=== PATIENT | male | born 1955 | race Caucasian/White ===

== ENCOUNTER → 2019-07-29 | Outpatient (CLI) | payer BC, SELFPAY ==
--- NOTE | 2019-07-29 08:41 | CDU_ITS ---
Reason For Study: TIA Rt. Velocities/BP Lt. Velocities/BP Prox CCA 100.8/17.3 cm/sec. Prox CCA 164.9/18.8 cm/sec. Mid CCA 68.2/14.7 cm/sec. Mid CCA 117.4/18.8 cm/sec. Dist CCA 93.0/17.3 cm/sec. Dist CCA 102.3/21.2 cm/sec. Prox ICA 94.9/15.1 cm/sec. Prox ICA 76.5/17.6 cm/sec. Mid ICA 70.4/20.0 cm/sec. Mid ICA 86.3/17.6 cm/sec. Dist ICA 75.3/18.8 cm/sec. Dist ICA 71.6/13.9 cm/sec. Rt. ICA/CCA = 1.4. Lt. ICA/CCA = .7. Prox ECA 135.7/9.7 cm/sec. Prox ECA 187.2/16.0 cm/sec. Rt. Vert. 61.8/15.1 cm/sec. Lt. Vert. 24.9 cm/sec. Right Extracranial There is homogeneous, smooth atherosclerotic plaque noted in the right common carotid artery. There is heterogeneous, irregular atherosclerotic plaque noted in the right internal carotid artery. There is homogeneous, smooth atherosclerotic plaque noted in the right external carotid artery. Antegrade flow is noted in the right vertebral artery. Left Extracranial There is homogeneous, smooth atherosclerotic plaque noted in the left common carotid artery. There is heterogeneous, irregular atherosclerotic plaque noted in the left internal carotid artery. There is homogeneous, smooth atherosclerotic plaque noted in the left external carotid artery. Antegrade flow is noted in the left vertebral artery. Procedure Carotid Duplex [id number]. The exam was diagnostic. Exam performed in department. Interpretation Summary Minimal irregular plague proximal right internal carotid with <50% stenosis <50% stenosis right external carotid Calcific plague with shadowing distal left common carotid artery/proximal internal carotid <50% stenosis left internal carotid <50% stenosis left external carotid Patent, antegrade vertebrals bilaterally Ordering Physician: Gaurav Jennings Performed By: Deonte Oviedo RVT
== END | disposition home or self-care (01) ==
PROVIDERS: PCP Internal Medicine; Referring Provider Internal Medicine; Visit Provider Internal Medicine
DX: I10 Essential (primary) hypertension (principal); Z86.73 Personal history of transient ischemic attack (TIA), and cerebral infarction without residual deficits
CPT/HCPCS: 93880

== ENCOUNTER 2020-05-09 14:29 | Inpatient (IN) | payer MEDICARE, OTHER, SELFPAY ==
[2020-05-09 14:41] VITALS: BP 124/78; PULSE 70; RESP 16; TEMP 36.7; O2SAT 96; BMI 25.9
[2020-05-09 15:39] VITALS: PULSE 84
[2020-05-09] MEDS: Aspirin E.C. 81 MG Tablet PO (17:13)
[2020-05-09] MEDS: Carvedilol 3.125 MG TABLET PO (17:13)
[2020-05-09] MEDS: Docusate Sodium 100 MG Capsule PO (17:13)
[2020-05-09] MEDS: Magnesium Citrate 300 ML PO (17:14)
[2020-05-09] MEDS: 0.9% Saline Lock 10 ML Syringe IV (17:58)
[2020-05-09] MEDS: Menthol/Lanolin/Calamine/Znox 113 GM Tube 1 APPLIC TOPICAL (17:59)
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
[2020-05-09] MEDS: traZODone 50 MG Tablet PO (21:39)
[2020-05-09] MEDS: Atorvastatin Calcium 80 MG Tablet PO (21:39)
[2020-05-09] MEDS: oxyCODONE 5 MG Tablet PO (21:44)
[2020-05-10 05:34] LABS: Absolute Lymphocyte Count 1.05 X10^3/uL (0.83-4.51); Absolute Neutrophil Count 6.7 X10^3/uL (2.0-7.7); Basophil# 0.05 X10^3/uL; Basophil% 0.6 % (0-1); Eosinophil# 0.12 X10^3/uL; Eosinophils% 1.4 % (0-5); Hematocrit 27.4 % (40-54); Hemoglobin 8.9 g/dL (13.0-16.5); Lymphocyte # 1.05 X10^3/ul (4.0); Lymphocyte % 12.3 % (19-41); Mean Corp Hgb Conc 32.5 g/dL (32-36); Mean Corpuscular Hgb 29.8 pg (27.0-32.0); Mean Corpuscular Volume 91.6 fL (80-94); Mean Platelet Vol. 8.3 fl (6.2-12.0); Monocyte# 0.66 X10^3/uL; Monocyte% 7.7 % (0-10); NRBC Flagged by Analyzer 0 % (0-5); Neutrophil # 6.65 X10^3/uL (2.7-7.7); Neutrophil % 77.6 % (47-70); Platelet Count 552 K/mm3 (150-450); RBC Distribution Width CV 14.8 % (11.6-14.6); RBC Distribution Width SD 50.1 fl (35.1-43.9); Red Blood Count 2.99 M/mm3 (4.6-6.2); White Blood Count 8.6 K/mm3 (4.4-11.0)
[2020-05-10] MEDS: Ascorbic Acid 500 MG Tablet 1000 MG PO (05:48)
[2020-05-10] MEDS: Pantoprazole Sodium 20 MG Tablet PO (05:48)
[2020-05-10] MEDS: Losartan Potassium 100 MG Tablet PO (05:49)
[2020-05-10] MEDS: Polyethylene Glycol 3350 17 GM PACKET PO (05:49)
[2020-05-10] MEDS: Menthol/Lanolin/Calamine/Znox 113 GM Tube 1 APPLIC TOPICAL ×2 (05:49→18:20)
[2020-05-10] MEDS: hydroCHLOROthiazide 25 MG Tablet PO (05:49)
[2020-05-10] MEDS: Docusate Sodium 100 MG Capsule PO ×2 (05:49→17:50)
[2020-05-10] MEDS: Nystatin Powder 15gm Bottle 1 APPLIC TOPICAL ×2 (05:49→18:26)
[2020-05-10] MEDS: Meloxicam 15 MG Tablet PO (05:49)
[2020-05-10 05:56] LABS: Anion Gap 4 (5-15); BUN 10 mg/dL (7-18); BUN/Creat Ratio 19.3 RATIO (10-20); Calcium,Total 8.3 mg/dL (8.5-10.1); Chloride 100 mmol/L (98-107); Creatinine, Serum 0.52 mg/dL (0.70-1.30); EST Glomerular Filtration Rate 170 mL/min (>60); Est Glom Filt Rate - Afr Amer 206 mL/min (>60); Estimated Creatinine Clearance 169.27 ml/min; Glucose 109 mg/dL (74-106); Potassium 4.2 mmol/L (3.5-5.1); Sodium Level 133 mmol/L (136-145)
[2020-05-10 05:57] VITALS: BP 111/69; PULSE 68; RESP 18; TEMP 36.2; O2SAT 97
--- NOTE | 2020-05-10 07:56 | RAD_ITS ---
STUDY: X-RAY - ABDOMEN/PELVIS REASON FOR EXAM: Male, 64 years old. Constipation TECHNIQUE: Single AP view of the abdomen / pelvis. COMPARISON: None. FINDINGS: Mild gaseous distention of the colon. Large amount of fecal material is seen in the rectum suggestive of possible fecaloma. Several rounded densities are seen in the region of the cecum most likely representing ingested tablets. The visualized liver, spleen and kidneys are grossly normal in size and morphology. Normal soft tissue structures. There are diffuse degenerative changes of the visualized lumbar spine. RAD/Abdomen Single View IMPRESSION: Large amount of fecal material is seen in the rectum with some mild dilatation of the colon. Electronically Signed: Luis Carlos Crocker MD at 11:18 EST , Service support ,
[2020-05-10] MEDS: Carvedilol 3.125 MG TABLET PO ×2 (08:38→17:51)
[2020-05-10] MEDS: Aspirin E.C. 81 MG Tablet PO ×2 (08:38→17:50)
[2020-05-10] MEDS: Iron Polysaccharide Complex 150 MG CAPSULE PO (09:50)
[2020-05-10] MEDS: Tuberculin,Purif.prot.deriv. 50 TU/ML Vial 5 ML ID (09:50)
--- NOTE | 2020-05-10 10:22 | CASEMGMT ---
Social Work SW spoke w/pt regarding code status, confirmed pt in agreement with DNRCC. MOLST form reviewed, communication to doctor, form placed in chart. STANTON Oliver
[2020-05-10] MEDS: 0.9% Saline Lock 10 ML Syringe IV ×3 (12:28→17:49)
[2020-05-10 13:52] VITALS: BP 94/59; PULSE 76; RESP 17; TEMP 36.4; O2SAT 95
--- NOTE | 2020-05-10 14:01 | PCM.PN.RX ---
<Tatiana Estrada - Last Filed: 05/10/20 14:01> Progress Note - Pharmacy Subjective: TCU Admission Objective: Allergies povidone-iodine [From Betadine] Adverse Reaction (Verified 05/09/20 15:35) Rash soap [From Betadine] Adverse Reaction (Verified 05/09/20 15:35) Rash sulfamethoxazole [From Bactrim] Adverse Reaction (Verified 05/09/20 15:35) Rash trimethoprim [From Bactrim] Adverse Reaction (Verified 05/09/20 15:35) Rash Current Medications Generic Name Dose Route Start Last Admin Trade Name Freq PRN Reason Stop Dose Admin Acetaminophen 1,000 mg 05/09/20 20:24 Acetaminophen 500 Mg Tablet PO Q6H PRN PRN Pain Score 1-3 Ascorbic Acid 1,000 mg 05/10/20 06:00 05/10/20 05:48 Ascorbic Acid 500 Mg Tablet PO 1,000 mg DAILY ALAN Administration Aspirin 81 mg 05/09/20 17:00 05/10/20 08:38 Aspirin E.C. 81 Mg Tablet PO 81 mg BIDCM ALAN Administration Atorvastatin Calcium 80 mg 05/09/20 22:00 05/09/20 21:39 Atorvastatin Calcium 80 Mg Tablet PO 80 mg QHS ALAN Administration Bisacodyl 5 mg 05/09/20 15:06 Bisacodyl 5 Mg Tablet PO BID PRN PRN Constipation Calamine/Phenol 1 applic 05/09/20 18:00 05/10/20 05:49 Menthol/Lanolin/Calamine/Znox 113 Gm Tube TOPICAL 1 applicatio BID ALAN Administration Protocol Carvedilol 3.125 mg 05/09/20 17:00 05/10/20 08:38 Carvedilol 3.125 Mg Tablet PO 3.125 mg BIDCM ALAN Administration Docusate Sodium 100 mg 05/09/20 18:00 05/10/20 05:49 Docusate Sodium 100 Mg Capsule PO 100 mg BID ALAN Administration Heparin Sodium (Beef Lung) 50 units 05/09/20 16:04 Heparin Pf Lock 10 Units/Ml 50 Units/5 Ml Syringe IV UD PRN PICC Line Heparin Flush Hydrochlorothiazide 25 mg 05/10/20 06:00 05/10/20 05:49 Hydrochlorothiazide 25 Mg Tablet PO 25 mg DAILY ALAN Administration Ampicillin Sodium 2 gm/ Sodium 100 mls @ 200 mls/hr 02/09/21 18:00 05/10/20 13:30 Chloride IV 06/13/20 23:59 Infused Q6 ALAN Infusion Sodium Chloride 250 mls @ 15 mls/hr 05/09/20 17:20 05/10/20 06:28 IV 15 mls/hr .[id number] PRN Infusion Additional IVPB Infusion Losartan Potassium 100 mg 05/10/20 06:00 05/10/20 05:49 Losartan Potassium 100 Mg Tablet PO 100 mg DAILY ALAN Administration Meloxicam 15 mg 05/10/20 06:00 05/10/20 05:49 Meloxicam 15 Mg Tablet PO 15 mg DAILY ALAN Administration Nystatin 1 applic 05/09/20 18:00 05/10/20 05:49 Nystatin Powder 15gm Bottle TOPICAL 1 applicatio BID ALAN Administration Protocol Ondansetron HCl 4 mg 05/09/20 18:01 Ondansetron Odt 4 Mg Tablet PO Q8H PRN PRN NAUSEA/VOMITING Oxycodone HCl 5 mg 05/09/20 20:25 05/09/20 21:44 Oxycodone 5 Mg Tablet PO 5 mg Q4H PRN PRN Administration Pain Score 4-10 Pantoprazole Sodium 20 mg 05/10/20 06:00 05/10/20 05:48 Pantoprazole Sodium 20 Mg Tablet PO 20 mg DAILY ALAN Administration Polyethylene Glycol 17 gm 05/10/20 06:00 05/10/20 05:49 Polyethylene Glycol 3350 17 Gm Packet PO 17 gm DAILY ALAN Administration Polysaccharide Iron Complex 150 mg 05/10/20 08:00 05/10/20 09:50 Iron Polysaccharide Complex 150 Mg Capsule PO 150 mg DAILYCM ALAN Administration Sodium Chloride 10 - 40 ml 05/09/20 16:04 05/10/20 13:33 0.9% Saline Lock 10 Ml Syringe IV 10 ml UD PRN Administration Open End PICC Flush Sodium Chloride 10 - 40 ml 05/09/20 16:04 0.9 % Nacl (Sterile) Posiflush 10 Ml IV UD PRN Port access or dressing change Trazodone HCl 50 mg 05/09/20 22:00 05/09/20 21:39 Trazodone 50 Mg Tablet PO 50 mg QHS ALAN Administration Tuberculin PPD 5 tu 05/17/20 10:00 Tuberculin,Purif.Prot.Deriv. 50 Tu/Ml Vial ID 05/17/20 10:01 X1 ONE Problem List Debility (Acute) Infection of prosthetic left knee joint (Acute) Stroke (Chronic) Hypertension (Chronic) Hyperlipidemia (Chronic) Transient ischemic attack (Chronic) Vital Signs Temp Pulse Resp BP Pulse Ox 97.5 F L 76 17 94/59 L 95 05/10/20 13:52 05/10/20 13:52 05/10/20 13:52 05/10/20 13:52 05/10/20 13:52 Oxygen Delivery Method Room Air Weight: 93.894 kg Body Mass Index (BMI) 25.9 Sodium 133 mmol/L (136-145) L 05/10/20 05:15 Potassium 4.2 mmol/L (3.5-5.1) 05/10/20 05:15 Chloride 100 mmol/L (98-107) 05/10/20 05:15 Carbon Dioxide 29.0 mmol/L (21.0-32.0) 05/10/20 05:15 Anion Gap 4 (5-15) L 05/10/20 05:15 BUN 10 mg/dL (7-18) 05/10/20 05:15 Creatinine 0.52 mg/dL (0.70-1.30) L 05/10/20 05:15 Est GFR (MDRD) Af Amer 206 mL/min (>60) 05/10/20 05:15 Est GFR (MDRD) Non-Af 170 mL/min (>60) 05/10/20 05:15 BUN/Creatinine Ratio 19.3 RATIO (10-20) 05/10/20 05:15 Glucose 109 mg/dL (74-106) H 05/10/20 05:15 Assessment/Plan: 1. Pain: acetaminophen 1000mg PO Q6H PRN pain 1-3/10 and oxycodone 5mg PO Q4H PRN pain 4-10/10. Please continue to monitor for increased pain, PRN usage, constipation, and respiratory depression. 2. Left prosthetic knee infection: ampicillin 2gm IV Q6H thru 06/13/20. Please continue to monitor renal function, S/S of infection and diarrhea. 3. DVT prophylaxis/stroke: aspirin 81mg PO BIDCM. Please continue to monitor for S/S of bleeding/DVT, hemoglobin (last 8.9g/dL), and platelets (last 552,000). 4. Hypertension: carvedilol 3.125mg PO BIDCM, losartan 100mg PO daily and hydrochlorothiazide 25mg PO daily. Please continue to monitor HR (last 76), BP (last 111/69), renal function, potassium (last 4.2mmol/L). *5. Hyperlipidemia: atorvastatin 80mg PO QHS. Please consider ordering a lipid panel. Patient does not have a lipid panel in the chart. Thanks. Please continue to monitor for muscle pain. 6. Osteoarthritis: meloxicam 15mg PO daily. Please continue to monitor for pain and bleeding. 7. Iron deficiency (hemoglobin 8.9g/dL): Ferrex 150mg PO DAILYCM. Please continue to monitor hemoglobin and for dark stools. 8. GERD: pantoprazole 20mg PO daily. Please continue to monitor for S/S of GERD and diarrhea. 9. Nausea: ondansetron 4mg PO Q8H PRN nausea/vomiting. Please continue to monitor for nausea, vomiting, and PRN usage. 10. Vitamin C deficiency: ascorbic acid 1000mg PO DAILYCM. Please continue to monitor. Psychotropic Medications: *1. Insomnia: trazodone 50mg PO QHS. Please consider GDR by 10/2020 if clinically appropriate. Thanks. Unnecessary Medications: None Bowel Regimen: docusate 100mg PO BID, Miralax 17gm PO daily, bisacodyl 5mg PO BID PRN constipation. Please continue to monitor for constipation and PRN usage. Date of Note:: 05/10/20 - Provider Comments Provider responsibility: Provider responsible to enter orders to implement recommendations <Neal Cross Chi - Last Filed: 05/10/20 16:05> Progress Note - Pharmacy Subjective: [] Objective: Allergies povidone-iodine [From Betadine] Adverse Reaction (Verified 05/09/20 15:35) Rash soap [From Betadine] Adverse Reaction (Verified 05/09/20 15:35) Rash sulfamethoxazole [From Bactrim] Adverse Reaction (Verified 05/09/20 15:35) Rash trimethoprim [From Bactrim] Adverse Reaction (Verified 05/09/20 15:35) Rash Current Medications Generic Name Dose Route Start Last Admin Trade Name Freq PRN Reason Stop Dose Admin Acetaminophen 1,000 mg 05/09/20 20:24 Acetaminophen 500 Mg Tablet PO Q6H PRN PRN Pain Score 1-3 Ascorbic Acid 1,000 mg 05/10/20 06:00 05/10/20 05:48 Ascorbic Acid 500 Mg Tablet PO 1,000 mg DAILY ALAN Administration Aspirin 81 mg 05/09/20 17:00 05/10/20 08:38 Aspirin E.C. 81 Mg Tablet PO 81 mg BIDCM ALAN Administration Atorvastatin Calcium 80 mg 05/09/20 22:00 05/09/20 21:39 Atorvastatin Calcium 80 Mg Tablet PO 80 mg QHS ALAN Administration Bisacodyl 5 mg 05/09/20 15:06 Bisacodyl 5 Mg Tablet PO BID PRN PRN Constipation Calamine/Phenol 1 applic 05/09/20 18:00 05/10/20 05:49 Menthol/Lanolin/Calamine/Znox 113 Gm Tube TOPICAL 1 applicatio BID ALAN Administration Protocol Carvedilol 3.125 mg 05/09/20 17:00 05/10/20 08:38 Carvedilol 3.125 Mg Tablet PO 3.125 mg BIDCM ALAN Administration Docusate Sodium 100 mg 05/09/20 18:00 05/10/20 05:49 Docusate Sodium 100 Mg Capsule PO 100 mg BID ALAN Administration Heparin Sodium (Beef Lung) 50 units 05/09/20 16:04 Heparin Pf Lock 10 Units/Ml 50 Units/5 Ml Syringe IV UD PRN PICC Line Heparin Flush Hydrochlorothiazide 25 mg 05/10/20 06:00 05/10/20 05:49 Hydrochlorothiazide 25 Mg Tablet PO 25 mg DAILY ALAN Administration Ampicillin Sodium 2 gm/ Sodium 100 mls @ 200 mls/hr 05/09/20 18:00 05/10/20 13:30 Chloride IV 06/13/20 23:59 Infused Q6 ALAN Infusion Sodium Chloride 250 mls @ 15 mls/hr 05/09/20 17:20 05/10/20 06:28 IV 15 mls/hr .[id number] PRN Infusion Additional IVPB Infusion Lactulose 200 gm 05/10/20 16:01 Lactulose 20 Gm/30 Ml Udc RC 05/10/20 16:02 X1 ONE Losartan Potassium 100 mg 05/10/20 06:00 05/10/20 05:49 Losartan Potassium 100 Mg Tablet PO 100 mg DAILY ALAN Administration Meloxicam 15 mg 05/10/20 06:00 05/10/20 05:49 Meloxicam 15 Mg Tablet PO 15 mg DAILY ALAN Administration Nystatin 1 applic 05/09/20 18:00 05/10/20 05:49 Nystatin Powder 15gm Bottle TOPICAL 1 applicatio BID ALAN Administration Protocol Ondansetron HCl 4 mg 05/09/20 18:01 Ondansetron Odt 4 Mg Tablet PO Q8H PRN PRN NAUSEA/VOMITING Oxycodone HCl 5 mg 05/09/20 20:25 05/09/20 21:44 Oxycodone 5 Mg Tablet PO 5 mg Q4H PRN PRN Administration Pain Score 4-10 Pantoprazole Sodium 20 mg 05/10/20 06:00 05/10/20 05:48 Pantoprazole Sodium 20 Mg Tablet PO 20 mg DAILY ALAN Administration Polyethylene Glycol 17 gm 05/10/20 06:00 05/10/20 05:49 Polyethylene Glycol 3350 17 Gm Packet PO 17 gm DAILY ALAN Administration Polysaccharide Iron Complex 150 mg 05/10/20 08:00 05/10/20 09:50 Iron Polysaccharide Complex 150 Mg Capsule PO 150 mg DAILYCM ALAN Administration Sodium Chloride 10 - 40 ml 05/09/20 16:04 05/10/20 13:33 0.9% Saline Lock 10 Ml Syringe IV 10 ml UD PRN Administration Open End PICC Flush Sodium Chloride 10 - 40 ml 05/09/20 16:04 0.9 % Nacl (Sterile) Posiflush 10 Ml IV UD PRN Port access or dressing change Trazodone HCl 50 mg 05/09/20 22:00 05/09/20 21:39 Trazodone 50 Mg Tablet PO 50 mg QHS [facility] Administration Tuberculin PPD 5 tu 05/17/20 10:00 Tuberculin,Purif.Prot.Deriv. 50 Tu/Ml Vial ID 05/17/20 10:01 X1 ONE Problem List Debility (Acute) Infection of prosthetic left knee joint (Acute) Stroke (Chronic) Hypertension (Chronic) Hyperlipidemia (Chronic) Transient ischemic attack (Chronic) Vital Signs Temp Pulse Resp BP Pulse Ox 97.5 F L 76 17 94/59 L 95 05/10/20 13:52 05/10/20 13:52 05/10/20 13:52 05/10/20 13:52 05/10/20 13:52 Oxygen Delivery Method Room Air Weight: 93.894 kg Body Mass Index (BMI) 25.9 Sodium 133 mmol/L (136-145) L 05/10/20 05:15 Potassium 4.2 mmol/L (3.5-5.1) 05/10/20 05:15 Chloride 100 mmol/L (98-107) 05/10/20 05:15 Carbon Dioxide 29.0 mmol/L (21.0-32.0) 05/10/20 05:15 Anion Gap 4 (5-15) L 05/10/20 05:15 BUN 10 mg/dL (7-18) 05/10/20 05:15 Creatinine 0.52 mg/dL (0.70-1.30) L 05/10/20 05:15 Est GFR (MDRD) Af Amer 206 mL/min (>60) 05/10/20 05:15 Est GFR (MDRD) Non-Af 170 mL/min (>60) 05/10/20 05:15 BUN/Creatinine Ratio 19.3 RATIO (10-20) 05/10/20 05:15 Glucose 109 mg/dL (74-106) H 05/10/20 05:15 Assessment/Plan: Psychotropic Medications: Unnecessary Medications: Bowel Regimen: - Provider Comments Provider responsibility: Provider responsible to enter orders to implement recommendations Provider Comments to Recommendations by Pharmacy: Agree
--- NOTE | 2020-05-10 14:37 | NURSING ---
Patient calls requesting to return to bed. Assist back to bed per this nurse and ENVIRONMENT[employer] HE[employer] SAF[employer] ENGINEER, Kimberly, using FWW, immobilizer in place, and maintained NWB status to LLE. Positioned in bed for comfort. Call light w/ in reach.
[2020-05-10] MEDS: Lactulose 20 GM/30 ML UDC 200 GM RC (18:20)
[2020-05-10] MEDS: traZODone 50 MG Tablet PO (21:42)
[2020-05-10] MEDS: Atorvastatin Calcium 80 MG Tablet PO (21:42)
[2020-05-10] MEDS: oxyCODONE 5 MG Tablet PO (21:46)
[2020-05-10] MEDS: Acetaminophen 500 MG Tablet 1000 MG PO (21:46)
[2020-05-11] MEDS: Nystatin Powder 15gm Bottle 1 APPLIC TOPICAL ×2 (06:24→17:19)
[2020-05-11] MEDS: Menthol/Lanolin/Calamine/Znox 113 GM Tube 1 APPLIC TOPICAL ×2 (06:24→17:20)
[2020-05-11] MEDS: Ascorbic Acid 500 MG Tablet 1000 MG PO (06:25)
[2020-05-11] MEDS: Meloxicam 15 MG Tablet PO (06:26)
[2020-05-11] MEDS: Losartan Potassium 100 MG Tablet PO (06:26)
[2020-05-11] MEDS: hydroCHLOROthiazide 25 MG Tablet PO (06:26)
[2020-05-11] MEDS: Docusate Sodium 100 MG Capsule PO ×2 (06:26→17:19)
[2020-05-11] MEDS: Pantoprazole Sodium 20 MG Tablet PO (06:26)
[2020-05-11 06:31] VITALS: BP 111/70; PULSE 68; RESP 16; TEMP 36.4; O2SAT 96
[2020-05-11] MEDS: 0.9% Saline Lock 10 ML Syringe IV ×3 (08:27→17:19)
[2020-05-11] MEDS: Iron Polysaccharide Complex 150 MG CAPSULE PO (08:29)
[2020-05-11] MEDS: Carvedilol 3.125 MG TABLET PO ×2 (08:29→17:19)
[2020-05-11] MEDS: Aspirin E.C. 81 MG Tablet PO ×2 (08:29→17:19)
[2020-05-11 08:31] VITALS: BP 104/67; PULSE 72
[2020-05-11 13:30] VITALS: PULSE 78; O2SAT 98
[2020-05-11 13:31] VITALS: BP 94/60; PULSE 68; RESP 16; TEMP 36.7; O2SAT 97
--- NOTE | 2020-05-11 14:44 | NURSING ---
wound photo: skin graft right knee
[2020-05-11 17:27] VITALS: BP 119/75; PULSE 64; TEMP 36.9
[2020-05-11] MEDS: Acetaminophen 500 MG Tablet 1000 MG PO (21:08)
[2020-05-11] MEDS: oxyCODONE 5 MG Tablet PO (21:09)
[2020-05-11] MEDS: Atorvastatin Calcium 80 MG Tablet PO (21:10)
[2020-05-11] MEDS: traZODone 50 MG Tablet PO (21:10)
[2020-05-12] MEDS: Meloxicam 15 MG Tablet PO (05:16)
[2020-05-12] MEDS: Pantoprazole Sodium 20 MG Tablet PO (05:16)
[2020-05-12] MEDS: hydroCHLOROthiazide 25 MG Tablet PO (05:16)
[2020-05-12] MEDS: Ascorbic Acid 500 MG Tablet 1000 MG PO (05:16)
[2020-05-12] MEDS: Losartan Potassium 100 MG Tablet PO (05:16)
[2020-05-12] MEDS: Menthol/Lanolin/Calamine/Znox 113 GM Tube 1 APPLIC TOPICAL ×2 (05:17→17:33)
[2020-05-12] MEDS: Nystatin Powder 15gm Bottle 1 APPLIC TOPICAL ×2 (05:17→17:34)
[2020-05-12 05:49] VITALS: BP 112/62; PULSE 60; RESP 16; TEMP 36.7; O2SAT 99
[2020-05-12 05:54] LABS: Hematocrit 26.4 % (40-54); Hemoglobin 8.4 g/dL (13.0-16.5)
[2020-05-12] MEDS: Iron Polysaccharide Complex 150 MG CAPSULE PO (08:34)
[2020-05-12] MEDS: Carvedilol 3.125 MG TABLET PO ×2 (08:34→17:32)
[2020-05-12] MEDS: Aspirin E.C. 81 MG Tablet PO ×2 (08:34→17:32)
[2020-05-12 11:10] VITALS: PULSE 71; RESP 16; O2SAT 97
[2020-05-12] MEDS: 0.9% Saline Lock 10 ML Syringe IV ×3 (12:02→23:42)
--- NOTE | 2020-05-12 13:00 | PCA ---
Addendum entered by Kimberly Sexton 05/12/20 16:43: Called [facility] to get a cost for a W/c transport to [facility] at the request for the Caren. Let her know the estimate is $1000 per Anai at [facility]. Caren updated. At this time she is still planning on taking pt to appt. Original Note: Patient called for a staff member to come to room. He had a voicemail from a nurse at [facility]. Stating that Dr. Acevedo wanted to see him on May 18 at 9am. Desk A60 at the [facility]. [phone]. Talked with therapy, they fill that family would be ok to transport versus us setting up transportation. Patient seems anxious about all the above. I have a message out to office to confirm the appt. waiting for a call back. told them to ask for me or charge nurse when they call us back. i Called and spoke with patients Caren. She is ok with driving pt to appt since therapy says its ok. Let them both know that if they change there minds and want us to set up transport to let us know, no later than Friday. Also let them no there is a cost for transport. RN updated
[2020-05-12 14:17] VITALS: BP 99/66; PULSE 76; RESP 17; TEMP 36.2; O2SAT 96
[2020-05-12] MEDS: Docusate Sodium 100 MG Capsule PO (17:32)
[2020-05-12 17:42] VITALS: BP 129/72; PULSE 66
[2020-05-12] MEDS: oxyCODONE 5 MG Tablet PO (21:32)
[2020-05-12] MEDS: Atorvastatin Calcium 80 MG Tablet PO (21:33)
--- NOTE | 2020-05-12 21:35 | NURSING ---
Pt refusing to take Trazodone at this time w/ remainder of hs meds and pain medication. Would like to take later this evening.
[2020-05-12] MEDS: traZODone 50 MG Tablet PO (23:41)
[2020-05-13] MEDS: 0.9% Saline Lock 10 ML Syringe IV ×4 (06:53→17:26)
[2020-05-13 06:56] VITALS: BP 126/73; PULSE 66; RESP 16; TEMP 36.9; O2SAT 94
[2020-05-13] MEDS: Pantoprazole Sodium 20 MG Tablet PO (07:07)
[2020-05-13] MEDS: Docusate Sodium 100 MG Capsule PO ×2 (07:08→17:26)
[2020-05-13] MEDS: hydroCHLOROthiazide 25 MG Tablet PO (07:08)
[2020-05-13] MEDS: Losartan Potassium 100 MG Tablet PO (07:08)
[2020-05-13] MEDS: Ascorbic Acid 500 MG Tablet 1000 MG PO (07:09)
[2020-05-13] MEDS: Polyethylene Glycol 3350 17 GM PACKET PO (07:10)
[2020-05-13] MEDS: Nystatin Powder 15gm Bottle 1 APPLIC TOPICAL ×2 (07:11→17:27)
[2020-05-13] MEDS: Menthol/Lanolin/Calamine/Znox 113 GM Tube 1 APPLIC TOPICAL ×2 (07:12→17:26)
[2020-05-13] MEDS: Aspirin E.C. 81 MG Tablet PO ×2 (09:02→17:26)
[2020-05-13] MEDS: Meloxicam 15 MG Tablet PO (09:02)
[2020-05-13] MEDS: Carvedilol 3.125 MG TABLET PO ×2 (09:02→17:26)
[2020-05-13] MEDS: Iron Polysaccharide Complex 150 MG CAPSULE PO (09:02)
[2020-05-13 09:06] VITALS: BP 109/64; PULSE 71
[2020-05-13 14:00] VITALS: BP 111/69; PULSE 73; RESP 18; TEMP 37; O2SAT 98
[2020-05-13] MEDS: traZODone 50 MG Tablet PO (20:05)
[2020-05-13] MEDS: Atorvastatin Calcium 80 MG Tablet PO (20:05)
[2020-05-13] MEDS: Acetaminophen 500 MG Tablet 1000 MG PO (22:42)
[2020-05-14 05:00] VITALS: BP 128/83; PULSE 70; RESP 18; TEMP 36.6; O2SAT 95
[2020-05-14 06:44] LABS: Hematocrit 28.3 % (40-54); Hemoglobin 8.9 g/dL (13.0-16.5)
[2020-05-14] MEDS: Menthol/Lanolin/Calamine/Znox 113 GM Tube 1 APPLIC TOPICAL ×2 (07:03→18:30)
[2020-05-14] MEDS: Pantoprazole Sodium 20 MG Tablet PO (07:04)
[2020-05-14] MEDS: Nystatin Powder 15gm Bottle 1 APPLIC TOPICAL ×2 (07:04→18:31)
[2020-05-14] MEDS: Ascorbic Acid 500 MG Tablet 1000 MG PO (07:04)
[2020-05-14] MEDS: Losartan Potassium 100 MG Tablet PO (07:04)
[2020-05-14] MEDS: Docusate Sodium 100 MG Capsule PO ×2 (07:04→18:30)
[2020-05-14] MEDS: hydroCHLOROthiazide 25 MG Tablet PO (07:04)
[2020-05-14] MEDS: Polyethylene Glycol 3350 17 GM PACKET PO (07:13)
[2020-05-14 07:57] VITALS: BP 145/84; PULSE 72
[2020-05-14] MEDS: Meloxicam 15 MG Tablet PO (07:58)
[2020-05-14] MEDS: Iron Polysaccharide Complex 150 MG CAPSULE PO (07:58)
[2020-05-14] MEDS: Carvedilol 3.125 MG TABLET PO ×2 (07:58→18:30)
[2020-05-14] MEDS: Aspirin E.C. 81 MG Tablet PO ×2 (07:58→18:30)
[2020-05-14] MEDS: 0.9% Saline Lock 10 ML Syringe IV ×2 (11:25→18:38)
[2020-05-14 14:08] VITALS: PULSE 66; RESP 16; O2SAT 96
[2020-05-14 14:59] VITALS: BP 119/70; PULSE 67; RESP 16; TEMP 36.5; O2SAT 96
[2020-05-14] MEDS: traZODone 50 MG Tablet PO (21:40)
[2020-05-14] MEDS: oxyCODONE 5 MG Tablet PO (21:40)
[2020-05-14] MEDS: Atorvastatin Calcium 80 MG Tablet PO (21:40)
[2020-05-15] MEDS: 0.9% Saline Lock 10 ML Syringe IV ×6 (00:19→23:28)
[2020-05-15 06:38] VITALS: BP 130/83; PULSE 74; RESP 16; TEMP 36.2; O2SAT 95
[2020-05-15] MEDS: Losartan Potassium 100 MG Tablet PO (06:41)
[2020-05-15] MEDS: Docusate Sodium 100 MG Capsule PO ×2 (06:41→17:02)
[2020-05-15] MEDS: Pantoprazole Sodium 20 MG Tablet PO (06:41)
[2020-05-15] MEDS: Ascorbic Acid 500 MG Tablet 1000 MG PO (06:41)
[2020-05-15] MEDS: hydroCHLOROthiazide 25 MG Tablet PO (06:41)
[2020-05-15] MEDS: Menthol/Lanolin/Calamine/Znox 113 GM Tube 1 APPLIC TOPICAL ×2 (06:42→17:03)
[2020-05-15] MEDS: Polyethylene Glycol 3350 17 GM PACKET PO (06:49)
[2020-05-15] MEDS: Nystatin Powder 15gm Bottle 1 APPLIC TOPICAL ×2 (06:50→17:03)
[2020-05-15] MEDS: Aspirin E.C. 81 MG Tablet PO ×2 (08:39→17:02)
[2020-05-15] MEDS: Iron Polysaccharide Complex 150 MG CAPSULE PO (08:39)
[2020-05-15] MEDS: Carvedilol 3.125 MG TABLET PO ×2 (08:39→17:02)
[2020-05-15] MEDS: Meloxicam 15 MG Tablet PO (08:39)
--- NOTE | 2020-05-15 11:21 | NURSING ---
Pt refused Prevnar 13 vaccine.
[2020-05-15 14:09] VITALS: BP 108/66; PULSE 80; RESP 18; TEMP 35.9; O2SAT 96
--- NOTE | 2020-05-15 16:16 | NURSING ---
Pt has not had a Bowel Movement since 05/10 pt refused Dulcolax.
[2020-05-15] MEDS: Magnesium Citrate 300 ML PO (16:58)
[2020-05-15] MEDS: oxyCODONE 5 MG Tablet PO (20:10)
[2020-05-15] MEDS: Atorvastatin Calcium 80 MG Tablet PO (20:11)
[2020-05-15] MEDS: traZODone 50 MG Tablet PO (22:05)
[2020-05-16 06:13] VITALS: BP 129/79; PULSE 79; RESP 16; TEMP 36.7; O2SAT 95
[2020-05-16] MEDS: hydroCHLOROthiazide 25 MG Tablet PO (06:19)
[2020-05-16] MEDS: Losartan Potassium 100 MG Tablet PO (06:19)
[2020-05-16] MEDS: Ascorbic Acid 500 MG Tablet 1000 MG PO (06:19)
[2020-05-16] MEDS: Docusate Sodium 100 MG Capsule PO (06:19)
[2020-05-16] MEDS: Pantoprazole Sodium 20 MG Tablet PO (06:19)
[2020-05-16] MEDS: Polyethylene Glycol 3350 17 GM PACKET PO ×2 (06:19→18:09)
[2020-05-16] MEDS: Nystatin Powder 15gm Bottle 1 APPLIC TOPICAL ×2 (06:20→18:09)
[2020-05-16] MEDS: Menthol/Lanolin/Calamine/Znox 113 GM Tube 1 APPLIC TOPICAL ×2 (06:21→18:09)
[2020-05-16] MEDS: Meloxicam 15 MG Tablet PO (09:11)
[2020-05-16] MEDS: Iron Polysaccharide Complex 150 MG CAPSULE PO (09:11)
[2020-05-16] MEDS: Carvedilol 3.125 MG TABLET PO ×2 (09:11→18:09)
[2020-05-16] MEDS: Aspirin E.C. 81 MG Tablet PO ×2 (09:11→18:09)
[2020-05-16 10:00] VITALS: BP 115/72; PULSE 74; PULSE 78; RESP 18; O2SAT 97
[2020-05-16] MEDS: oxyCODONE 5 MG Tablet PO ×2 (11:29→21:44)
[2020-05-16] MEDS: 0.9% Saline Lock 10 ML Syringe IV ×3 (11:29→23:55)
[2020-05-16 13:14] VITALS: BP 91/63; PULSE 71; RESP 16; TEMP 35.9; O2SAT 97
--- NOTE | 2020-05-16 14:24 | NURSING ---
Pt has not had BM 05/10/20 pt would like to try a Dulcolax suppository. Updated Dr. Cross new order for Dulcolax suppository entered. Pt tolerated well. Call light within reach and will continue to monitor.
[2020-05-16] MEDS: Bisacodyl 10 MG Suppository RC (14:26)
--- NOTE | 2020-05-16 15:12 | NURSING ---
wound photo: left leg
[2020-05-16] MEDS: Senna Tablet 2 TABLET PO (18:08)
[2020-05-16] MEDS: traZODone 50 MG Tablet PO (21:00)
[2020-05-16] MEDS: Atorvastatin Calcium 80 MG Tablet PO (21:00)
[2020-05-17 05:00] VITALS: BP 107/65; PULSE 67; RESP 18; TEMP 37; O2SAT 95
[2020-05-17] MEDS: Polyethylene Glycol 3350 17 GM PACKET PO ×2 (05:22→18:18)
[2020-05-17] MEDS: hydroCHLOROthiazide 25 MG Tablet PO (05:22)
[2020-05-17] MEDS: Senna Tablet 2 TABLET PO ×2 (05:22→18:14)
[2020-05-17] MEDS: Pantoprazole Sodium 20 MG Tablet PO (05:22)
[2020-05-17] MEDS: Ascorbic Acid 500 MG Tablet 1000 MG PO (05:22)
[2020-05-17] MEDS: Menthol/Lanolin/Calamine/Znox 113 GM Tube 1 APPLIC TOPICAL ×2 (05:23→18:15)
[2020-05-17] MEDS: Losartan Potassium 100 MG Tablet PO (05:23)
[2020-05-17] MEDS: Nystatin Powder 15gm Bottle 1 APPLIC TOPICAL ×2 (05:23→18:15)
[2020-05-17 06:01] LABS: Absolute Lymphocyte Count 1.46 X10^3/uL (0.83-4.51); Absolute Neutrophil Count 5.3 X10^3/uL (2.0-7.7); Basophil# 0.05 X10^3/uL; Basophil% 0.7 % (0-1); Eosinophil# 0.09 X10^3/uL; Eosinophils% 1.2 % (0-5); Hematocrit 28.8 % (40-54); Lymphocyte # 1.46 X10^3/ul (4.0); Lymphocyte % 19.5 % (19-41); Mean Corp Hgb Conc 31.3 g/dL (32-36); Mean Corpuscular Volume 92.9 fL (80-94); Mean Platelet Vol. 8.1 fl (6.2-12.0); Monocyte# 0.51 X10^3/uL; Monocyte% 6.8 % (0-10); NRBC Flagged by Analyzer 0 % (0-5); Neutrophil # 5.34 X10^3/uL (2.7-7.7); Neutrophil % 71.1 % (47-70); Platelet Count 685 K/mm3 (150-450); RBC Distribution Width CV 15.6 % (11.6-14.6); RBC Distribution Width SD 52.1 fl (35.1-43.9); White Blood Count 7.5 K/mm3 (4.4-11.0)
[2020-05-17 06:26] LABS: Anion Gap 4 (5-15); BUN 12 mg/dL (7-18); Calcium,Total 8.6 mg/dL (8.5-10.1); Chloride 100 mmol/L (98-107); Creatinine, Serum 0.57 mg/dL (0.70-1.30); EST Glomerular Filtration Rate 152 mL/min (>60); Est Glom Filt Rate - Afr Amer 183 mL/min (>60); Estimated Creatinine Clearance 154.42 ml/min; Glucose 96 mg/dL (74-106); Potassium 4.1 mmol/L (3.5-5.1); Sodium Level 133 mmol/L (136-145)
[2020-05-17] MEDS: Meloxicam 15 MG Tablet PO (08:20)
[2020-05-17] MEDS: Iron Polysaccharide Complex 150 MG CAPSULE PO (08:20)
[2020-05-17] MEDS: Carvedilol 3.125 MG TABLET PO ×2 (08:20→18:15)
[2020-05-17] MEDS: Aspirin E.C. 81 MG Tablet PO ×2 (08:20→18:14)
[2020-05-17] MEDS: 0.9% Saline Lock 10 ML Syringe IV ×3 (08:24→12:13)
--- NOTE | 2020-05-17 11:38 | CASEMGMT ---
Social Work IDT met with patient and via conference call for care plan meeting. Discussed patient's progress in therapy and nursing. Pt remains NWBS on left leg with immobilizer, IV ATB Q6, stops 06/13, wounds. Pt is out isolation 05/23. reports pt's affect is normal. The goal is for pt to return home with . works 9 am -3:30 pm 3x/wk. pt will need to be independent. Explained Medicare benefit. Encouraged to contact secondary insurance to ensure copay coverage. Will continue to follow for DC planning. RA Palencia UNIT SUPPORT REPRESENTATIVE
[2020-05-17] MEDS: Tuberculin,Purif.prot.deriv. 50 TU/ML Vial 5 ML ID (12:13)
[2020-05-17 14:39] VITALS: BP 137/75; PULSE 71; RESP 17; TEMP 36.1; O2SAT 97
[2020-05-17] MEDS: oxyCODONE 5 MG Tablet PO (22:34)
[2020-05-17] MEDS: Atorvastatin Calcium 80 MG Tablet PO (22:34)
[2020-05-17] MEDS: traZODone 50 MG Tablet PO (22:34)
[2020-05-18] MEDS: 0.9% Saline Lock 10 ML Syringe IV ×5 (00:36→23:34)
[2020-05-18] MEDS: oxyCODONE 5 MG Tablet PO ×2 (06:35→21:37)
[2020-05-18] MEDS: Pantoprazole Sodium 20 MG Tablet PO (06:41)
[2020-05-18] MEDS: Ascorbic Acid 500 MG Tablet 1000 MG PO (06:41)
[2020-05-18] MEDS: hydroCHLOROthiazide 25 MG Tablet PO (06:41)
[2020-05-18] MEDS: Losartan Potassium 100 MG Tablet PO (06:42)
[2020-05-18] MEDS: Nystatin Powder 15gm Bottle 1 APPLIC TOPICAL ×2 (06:42→17:43)
[2020-05-18] MEDS: Menthol/Lanolin/Calamine/Znox 113 GM Tube 1 APPLIC TOPICAL ×2 (06:42→17:43)
[2020-05-18] MEDS: Senna Tablet 2 TABLET PO ×2 (06:43→17:43)
[2020-05-18] MEDS: Polyethylene Glycol 3350 17 GM PACKET PO ×2 (06:44→17:57)
[2020-05-18 06:53] VITALS: BP 110/74; PULSE 68; RESP 18; TEMP 36.4; O2SAT 97
--- NOTE | 2020-05-18 08:00 | NURSING ---
pt off unit to appt via cot by [facility].
--- NOTE | 2020-05-18 12:35 | NURSING ---
Addendum entered by Davina Medina 05/18/20 13:10: came back with new orders to knee and to leave donor site alone. tayler drain removed leave RAJWINDER Original Note: pt returned from appt at this time.
[2020-05-18] MEDS: Iron Polysaccharide Complex 150 MG CAPSULE PO (12:42)
[2020-05-18] MEDS: Carvedilol 3.125 MG TABLET PO ×2 (12:42→17:42)
[2020-05-18] MEDS: Aspirin E.C. 81 MG Tablet PO ×2 (12:42→17:43)
[2020-05-18] MEDS: Meloxicam 15 MG Tablet PO (12:42)
[2020-05-18 14:59] VITALS: BP 95/55; PULSE 77; RESP 17; TEMP 36.5; O2SAT 97
--- NOTE | 2020-05-18 18:14 | NURSING ---
[facility] notified of pt needing appt for thrombocytosis. medical records faxed per office request, after reviewing they will call us with appt date/time
[2020-05-18] MEDS: traZODone 50 MG Tablet PO (21:37)
[2020-05-18] MEDS: Atorvastatin Calcium 80 MG Tablet PO (21:37)
[2020-05-19 02:49] VITALS: BP 100/71; PULSE 75; RESP 16; TEMP 36.6; O2SAT 93
[2020-05-19] MEDS: 0.9% Saline Lock 10 ML Syringe IV ×4 (06:13→23:25)
[2020-05-19] MEDS: Menthol/Lanolin/Calamine/Znox 113 GM Tube 1 APPLIC TOPICAL ×2 (06:13→17:24)
[2020-05-19] MEDS: Ascorbic Acid 500 MG Tablet 1000 MG PO (06:14)
[2020-05-19] MEDS: Senna Tablet 2 TABLET PO (06:14)
[2020-05-19] MEDS: Nystatin Powder 15gm Bottle 1 APPLIC TOPICAL ×2 (06:14→17:25)
[2020-05-19] MEDS: hydroCHLOROthiazide 25 MG Tablet PO (06:15)
[2020-05-19] MEDS: Losartan Potassium 100 MG Tablet PO (06:15)
[2020-05-19] MEDS: Pantoprazole Sodium 20 MG Tablet PO (06:15)
[2020-05-19] MEDS: Polyethylene Glycol 3350 17 GM PACKET PO ×2 (06:18→17:34)
[2020-05-19] MEDS: Aspirin E.C. 81 MG Tablet PO ×2 (08:26→17:24)
[2020-05-19] MEDS: Carvedilol 3.125 MG TABLET PO ×2 (08:26→17:24)
[2020-05-19] MEDS: Meloxicam 15 MG Tablet PO (08:26)
[2020-05-19] MEDS: Iron Polysaccharide Complex 150 MG CAPSULE PO (08:26)
[2020-05-19 08:30] VITALS: BP 113/71; PULSE 71
[2020-05-19 13:18] VITALS: BP 91/62; PULSE 78; RESP 16; TEMP 36.3; O2SAT 97
[2020-05-19] MEDS: BACITRACIN 15 GM Tube 1 APPLIC TOPICAL (15:33)
--- NOTE | 2020-05-19 16:32 | NURSING ---
Received return call form [facility], Dr Newton's office, the doctor wants the patient to come to their facility for xrays and F/U.
[2020-05-19] MEDS: Atorvastatin Calcium 80 MG Tablet PO (20:30)
[2020-05-19] MEDS: traZODone 50 MG Tablet PO (20:31)
[2020-05-19] MEDS: oxyCODONE 5 MG Tablet PO (21:29)
[2020-05-20 03:19] VITALS: BP 107/56; PULSE 65; RESP 15; TEMP 36.8; O2SAT 98
[2020-05-20] MEDS: 0.9% Saline Lock 10 ML Syringe IV ×3 (05:08→17:33)
[2020-05-20] MEDS: Ascorbic Acid 500 MG Tablet 1000 MG PO (05:09)
[2020-05-20] MEDS: Losartan Potassium 100 MG Tablet PO (05:09)
[2020-05-20] MEDS: hydroCHLOROthiazide 25 MG Tablet PO (05:09)
[2020-05-20] MEDS: Menthol/Lanolin/Calamine/Znox 113 GM Tube 1 APPLIC TOPICAL ×2 (05:09→17:34)
[2020-05-20] MEDS: Pantoprazole Sodium 20 MG Tablet PO (05:09)
[2020-05-20] MEDS: Senna Tablet 2 TABLET PO ×2 (05:09→17:33)
[2020-05-20] MEDS: Nystatin Powder 15gm Bottle 1 APPLIC TOPICAL ×2 (05:13→17:34)
[2020-05-20] MEDS: Carvedilol 3.125 MG TABLET PO ×2 (08:15→17:33)
[2020-05-20] MEDS: Aspirin E.C. 81 MG Tablet PO ×2 (08:15→17:33)
[2020-05-20] MEDS: Iron Polysaccharide Complex 150 MG CAPSULE PO (08:15)
[2020-05-20] MEDS: Meloxicam 15 MG Tablet PO (08:16)
[2020-05-20] MEDS: BACITRACIN 15 GM Tube 1 APPLIC TOPICAL (13:25)
[2020-05-20 13:28] VITALS: PULSE 69; RESP 18; O2SAT 96
[2020-05-20 14:28] VITALS: BP 106/62; PULSE 70; RESP 18; TEMP 36.7; O2SAT 97
[2020-05-20] MEDS: Polyethylene Glycol 3350 17 GM PACKET PO (17:33)
[2020-05-20] MEDS: Atorvastatin Calcium 80 MG Tablet PO (20:32)
[2020-05-20] MEDS: traZODone 50 MG Tablet PO (20:32)
[2020-05-20] MEDS: Acetaminophen 500 MG Tablet 1000 MG PO (20:39)
[2020-05-20] MEDS: oxyCODONE 5 MG Tablet PO (20:40)
[2020-05-21] MEDS: Losartan Potassium 100 MG Tablet PO (06:25)
[2020-05-21] MEDS: Senna Tablet 2 TABLET PO ×2 (06:25→17:35)
[2020-05-21] MEDS: hydroCHLOROthiazide 25 MG Tablet PO (06:25)
[2020-05-21] MEDS: Ascorbic Acid 500 MG Tablet 1000 MG PO (06:25)
[2020-05-21] MEDS: Nystatin Powder 15gm Bottle 1 APPLIC TOPICAL ×2 (06:26→17:36)
[2020-05-21] MEDS: Pantoprazole Sodium 20 MG Tablet PO (06:26)
[2020-05-21] MEDS: Menthol/Lanolin/Calamine/Znox 113 GM Tube 1 APPLIC TOPICAL ×2 (06:27→17:35)
[2020-05-21 06:29] VITALS: BP 125/70; PULSE 63; RESP 16; TEMP 36.7; O2SAT 95
[2020-05-21] MEDS: Meloxicam 15 MG Tablet PO (07:51)
[2020-05-21] MEDS: Iron Polysaccharide Complex 150 MG CAPSULE PO (07:51)
[2020-05-21] MEDS: Carvedilol 3.125 MG TABLET PO ×2 (07:51→17:35)
[2020-05-21] MEDS: Aspirin E.C. 81 MG Tablet PO ×2 (07:51→17:35)
[2020-05-21] MEDS: 0.9% Saline Lock 10 ML Syringe IV ×2 (11:13→17:35)
[2020-05-21 14:09] VITALS: BP 103/59; PULSE 70; RESP 16; TEMP 36.8; O2SAT 97
[2020-05-21] MEDS: Polyethylene Glycol 3350 17 GM PACKET PO (17:50)
[2020-05-21] MEDS: BACITRACIN 15 GM Tube 1 APPLIC TOPICAL (20:30)
[2020-05-21 20:45] VITALS: RESP 16
[2020-05-21] MEDS: traZODone 50 MG Tablet PO (21:30)
[2020-05-21] MEDS: Atorvastatin Calcium 80 MG Tablet PO (21:30)
[2020-05-21] MEDS: Acetaminophen 500 MG Tablet 1000 MG PO (21:31)
[2020-05-21] MEDS: oxyCODONE 5 MG Tablet PO (21:32)
[2020-05-22] MEDS: 0.9% Saline Lock 10 ML Syringe IV ×3 (00:04→13:07)
[2020-05-22] MEDS: Pantoprazole Sodium 20 MG Tablet PO (04:36)
[2020-05-22] MEDS: Ascorbic Acid 500 MG Tablet 1000 MG PO (04:36)
[2020-05-22] MEDS: Senna Tablet 2 TABLET PO ×2 (04:36→17:30)
[2020-05-22] MEDS: Losartan Potassium 100 MG Tablet PO (04:37)
[2020-05-22] MEDS: hydroCHLOROthiazide 25 MG Tablet PO (04:37)
[2020-05-22] MEDS: Menthol/Lanolin/Calamine/Znox 113 GM Tube 1 APPLIC TOPICAL ×2 (04:39→17:31)
[2020-05-22] MEDS: Nystatin Powder 15gm Bottle 1 APPLIC TOPICAL ×2 (04:40→17:30)
[2020-05-22 04:48] VITALS: BP 129/70; PULSE 57; RESP 15; TEMP 36.6; O2SAT 95
[2020-05-22] MEDS: Acetaminophen 500 MG Tablet 1000 MG PO ×2 (08:39→21:47)
[2020-05-22] MEDS: Meloxicam 15 MG Tablet PO (08:42)
[2020-05-22] MEDS: Iron Polysaccharide Complex 150 MG CAPSULE PO (08:42)
[2020-05-22] MEDS: Carvedilol 3.125 MG TABLET PO ×2 (08:42→17:30)
[2020-05-22] MEDS: Aspirin E.C. 81 MG Tablet PO ×2 (08:42→17:30)
[2020-05-22 08:44] VITALS: BP 123/77; PULSE 64
[2020-05-22] MEDS: Polyethylene Glycol 3350 17 GM PACKET PO ×2 (08:50→17:33)
--- NOTE | 2020-05-22 09:21 | MDS.RN ---
Information for the mds was obtained from review of the clinical record, interview of resident, staff ,and direct observation of resident's care.
[2020-05-22 15:10] VITALS: BP 122/70; PULSE 67; RESP 16; TEMP 36.5; O2SAT 96
--- NOTE | 2020-05-22 15:23 | NURSING ---
wound photo: left knee
[2020-05-22] MEDS: oxyCODONE 5 MG Tablet PO ×2 (15:51→21:44)
[2020-05-22] MEDS: BACITRACIN 15 GM Tube 1 APPLIC TOPICAL (15:52)
[2020-05-22] MEDS: Atorvastatin Calcium 80 MG Tablet PO (21:42)
[2020-05-22] MEDS: traZODone 50 MG Tablet PO (21:43)
[2020-05-23] MEDS: 0.9 % NaCl (Sterile) Posiflush 10 mL IV (00:34)
[2020-05-23] MEDS: Polyethylene Glycol 3350 17 GM PACKET PO ×2 (06:13→17:29)
[2020-05-23] MEDS: Losartan Potassium 100 MG Tablet PO (06:13)
[2020-05-23] MEDS: Pantoprazole Sodium 20 MG Tablet PO (06:13)
[2020-05-23] MEDS: Senna Tablet 2 TABLET PO ×2 (06:13→17:26)
[2020-05-23] MEDS: Nystatin Powder 15gm Bottle 1 APPLIC TOPICAL ×2 (06:14→17:26)
[2020-05-23] MEDS: hydroCHLOROthiazide 25 MG Tablet PO (06:14)
[2020-05-23] MEDS: Menthol/Lanolin/Calamine/Znox 113 GM Tube 1 APPLIC TOPICAL ×2 (06:14→17:26)
[2020-05-23] MEDS: Ascorbic Acid 500 MG Tablet 1000 MG PO (06:14)
[2020-05-23] MEDS: BACITRACIN 15 GM Tube 1 APPLIC TOPICAL (06:16)
[2020-05-23] MEDS: 0.9% Saline Lock 10 ML Syringe IV ×3 (06:25→17:25)
[2020-05-23] MEDS: oxyCODONE 5 MG Tablet PO ×2 (08:30→21:43)
[2020-05-23] MEDS: Iron Polysaccharide Complex 150 MG CAPSULE PO (08:31)
[2020-05-23] MEDS: Aspirin E.C. 81 MG Tablet PO ×2 (08:31→17:26)
[2020-05-23] MEDS: Meloxicam 15 MG Tablet PO (08:31)
[2020-05-23] MEDS: Carvedilol 3.125 MG TABLET PO ×2 (08:31→17:25)
[2020-05-23 08:34] VITALS: BP 121/70; PULSE 65
[2020-05-23 13:25] VITALS: BP 100/58; PULSE 68; RESP 16; TEMP 36.1; O2SAT 95
[2020-05-23] MEDS: Acetaminophen 500 MG Tablet 1000 MG PO (21:42)
[2020-05-23] MEDS: Atorvastatin Calcium 80 MG Tablet PO (21:49)
[2020-05-23] MEDS: traZODone 50 MG Tablet PO (21:49)
[2020-05-23 22:00] VITALS: RESP 16
[2020-05-24] MEDS: Senna Tablet 2 TABLET PO ×2 (06:00→17:32)
[2020-05-24] MEDS: Losartan Potassium 100 MG Tablet PO (06:00)
[2020-05-24] MEDS: hydroCHLOROthiazide 25 MG Tablet PO (06:00)
[2020-05-24] MEDS: Ascorbic Acid 500 MG Tablet 1000 MG PO (06:01)
[2020-05-24] MEDS: Menthol/Lanolin/Calamine/Znox 113 GM Tube 1 APPLIC TOPICAL ×2 (06:01→17:33)
[2020-05-24] MEDS: Pantoprazole Sodium 20 MG Tablet PO (06:01)
[2020-05-24] MEDS: Nystatin Powder 15gm Bottle 1 APPLIC TOPICAL ×2 (06:01→17:33)
[2020-05-24 06:02] LABS: Absolute Lymphocyte Count 1.21 X10^3/uL (0.83-4.51); Absolute Neutrophil Count 4.9 X10^3/uL (2.0-7.7); Basophil# 0.06 X10^3/uL; Basophil% 0.9 % (0-1); Eosinophil# 0.06 X10^3/uL; Eosinophils% 0.9 % (0-5); Hematocrit 29.7 % (40-54); Hemoglobin 9.2 g/dL (13.0-16.5); Lymphocyte # 1.21 X10^3/ul (4.0); Lymphocyte % 17.6 % (19-41); Mean Corpuscular Hgb 28.2 pg (27.0-32.0); Mean Corpuscular Volume 91.1 fL (80-94); Mean Platelet Vol. 8.4 fl (6.2-12.0); Monocyte# 0.66 X10^3/uL; Monocyte% 9.6 % (0-10); NRBC Flagged by Analyzer 0 % (0-5); Neutrophil # 4.85 X10^3/uL (2.7-7.7); Neutrophil % 70.7 % (47-70); Platelet Count 589 K/mm3 (150-450); RBC Distribution Width CV 15.1 % (11.6-14.6); RBC Distribution Width SD 50.6 fl (35.1-43.9); Red Blood Count 3.26 M/mm3 (4.6-6.2); White Blood Count 6.9 K/mm3 (4.4-11.0)
[2020-05-24] MEDS: BACITRACIN 15 GM Tube 1 APPLIC TOPICAL (06:02)
[2020-05-24] MEDS: Acetaminophen 500 MG Tablet 1000 MG PO ×2 (06:07→21:46)
[2020-05-24] MEDS: Polyethylene Glycol 3350 17 GM PACKET PO ×2 (06:07→17:45)
[2020-05-24] MEDS: oxyCODONE 5 MG Tablet PO ×3 (06:08→21:46)
[2020-05-24 06:14] VITALS: BP 124/74; PULSE 61; RESP 16; TEMP 36.8; O2SAT 96
[2020-05-24 06:38] LABS: Anion Gap 5 (5-15); BUN 12 mg/dL (7-18); BUN/Creat Ratio 18.6 RATIO (10-20); Calcium,Total 8.8 mg/dL (8.5-10.1); Chloride 101 mmol/L (98-107); Creatinine, Serum 0.64 mg/dL (0.70-1.30); EST Glomerular Filtration Rate 132 mL/min (>60); Est Glom Filt Rate - Afr Amer 160 mL/min (>60); Estimated Creatinine Clearance 137.53 ml/min; Glucose 95 mg/dL (74-106); Potassium 4.2 mmol/L (3.5-5.1); Sodium Level 136 mmol/L (136-145)
[2020-05-24] MEDS: Meloxicam 15 MG Tablet PO (08:17)
[2020-05-24] MEDS: Carvedilol 3.125 MG TABLET PO ×2 (08:17→17:32)
[2020-05-24] MEDS: Aspirin E.C. 81 MG Tablet PO ×2 (08:17→17:33)
[2020-05-24] MEDS: Iron Polysaccharide Complex 150 MG CAPSULE PO (08:17)
[2020-05-24 10:00] VITALS: PULSE 74; RESP 16; O2SAT 96
[2020-05-24] MEDS: 0.9% Saline Lock 10 ML Syringe IV ×2 (11:47→17:48)
[2020-05-24 13:32] VITALS: BP 101/65; PULSE 68; RESP 18; TEMP 36.3; O2SAT 97
--- NOTE | 2020-05-24 19:03 | NURSING ---
Dressing changed per orders.
[2020-05-24] MEDS: traZODone 50 MG Tablet PO (21:46)
[2020-05-24] MEDS: Atorvastatin Calcium 80 MG Tablet PO (21:46)
[2020-05-25 06:02] VITALS: BP 127/76; PULSE 68; RESP 16; TEMP 36.8; O2SAT 95
[2020-05-25] MEDS: Ascorbic Acid 500 MG Tablet 1000 MG PO (06:05)
[2020-05-25] MEDS: oxyCODONE 5 MG Tablet PO ×2 (06:05→17:25)
[2020-05-25] MEDS: Senna Tablet 2 TABLET PO ×2 (06:05→17:26)
[2020-05-25] MEDS: Acetaminophen 500 MG Tablet 1000 MG PO (06:05)
[2020-05-25] MEDS: hydroCHLOROthiazide 25 MG Tablet PO (06:06)
[2020-05-25] MEDS: Menthol/Lanolin/Calamine/Znox 113 GM Tube 1 APPLIC TOPICAL ×2 (06:06→17:27)
[2020-05-25] MEDS: Nystatin Powder 15gm Bottle 1 APPLIC TOPICAL ×2 (06:06→17:27)
[2020-05-25] MEDS: Losartan Potassium 100 MG Tablet PO (06:06)
[2020-05-25] MEDS: Pantoprazole Sodium 20 MG Tablet PO (06:06)
[2020-05-25] MEDS: Iron Polysaccharide Complex 150 MG CAPSULE PO (08:20)
[2020-05-25] MEDS: Aspirin E.C. 81 MG Tablet PO ×2 (08:20→17:26)
[2020-05-25] MEDS: Carvedilol 3.125 MG TABLET PO ×2 (08:21→17:26)
[2020-05-25] MEDS: Meloxicam 15 MG Tablet PO (08:21)
[2020-05-25] MEDS: 0.9% Saline Lock 10 ML Syringe IV ×2 (11:40→17:20)
[2020-05-25] MEDS: BACITRACIN 15 GM Tube 1 APPLIC TOPICAL (13:38)
[2020-05-25 13:44] VITALS: PULSE 84; RESP 16; O2SAT 94
[2020-05-25 14:25] VITALS: BP 103/62; PULSE 72; RESP 16; TEMP 36.8; O2SAT 96
--- NOTE | 2020-05-25 15:18 | NURSING ---
Spoke with Dr. Estrella office regarding 05/24 appt, no new orders. labs done and will have pt f/u 05/31/20 at 11am for results d/t thrombocytosis.
[2020-05-25] MEDS: Polyethylene Glycol 3350 17 GM PACKET PO (17:26)
[2020-05-25] MEDS: traZODone 50 MG Tablet PO (20:45)
[2020-05-25] MEDS: Atorvastatin Calcium 80 MG Tablet PO (20:45)
[2020-05-26] MEDS: 0.9% Saline Lock 10 ML Syringe IV ×4 (00:24→22:02)
[2020-05-26 05:44] VITALS: BP 136/84; PULSE 73; RESP 16; TEMP 36.6; O2SAT 95
[2020-05-26] MEDS: Pantoprazole Sodium 20 MG Tablet PO (05:46)
[2020-05-26] MEDS: Senna Tablet 2 TABLET PO (05:46)
[2020-05-26] MEDS: Ascorbic Acid 500 MG Tablet 1000 MG PO (05:46)
[2020-05-26] MEDS: Losartan Potassium 100 MG Tablet PO (05:46)
[2020-05-26] MEDS: hydroCHLOROthiazide 25 MG Tablet PO (05:46)
[2020-05-26] MEDS: Polyethylene Glycol 3350 17 GM PACKET PO (05:49)
[2020-05-26] MEDS: Menthol/Lanolin/Calamine/Znox 113 GM Tube 1 APPLIC TOPICAL ×2 (05:50→17:25)
[2020-05-26] MEDS: Nystatin Powder 15gm Bottle 1 APPLIC TOPICAL ×2 (05:51→17:25)
[2020-05-26] MEDS: Meloxicam 15 MG Tablet PO (08:33)
[2020-05-26] MEDS: Carvedilol 3.125 MG TABLET PO ×2 (08:33→17:26)
[2020-05-26] MEDS: Iron Polysaccharide Complex 150 MG CAPSULE PO (08:33)
[2020-05-26] MEDS: Aspirin E.C. 81 MG Tablet PO ×2 (08:33→17:26)
[2020-05-26 14:02] VITALS: BP 129/76; PULSE 76; RESP 16; TEMP 36.6; O2SAT 96
[2020-05-26] MEDS: BACITRACIN 15 GM Tube 1 APPLIC TOPICAL (14:19)
[2020-05-26 16:00] LABS: Hematocrit 31.3 % (40-54); Hemoglobin 9.9 g/dL (13.0-16.5)
[2020-05-26 16:09] VITALS: PULSE 72; RESP 16; O2SAT 97
[2020-05-26] MEDS: oxyCODONE 5 MG Tablet PO (21:40)
[2020-05-26] MEDS: traZODone 50 MG Tablet PO (21:41)
[2020-05-26] MEDS: Atorvastatin Calcium 80 MG Tablet PO (21:41)
[2020-05-27 05:37] VITALS: BP 114/73; PULSE 71; RESP 16; TEMP 36.9; O2SAT 95
[2020-05-27] MEDS: Ascorbic Acid 500 MG Tablet 1000 MG PO (05:38)
[2020-05-27] MEDS: Pantoprazole Sodium 20 MG Tablet PO (05:39)
[2020-05-27] MEDS: hydroCHLOROthiazide 25 MG Tablet PO (05:39)
[2020-05-27] MEDS: Losartan Potassium 100 MG Tablet PO (05:39)
[2020-05-27] MEDS: Menthol/Lanolin/Calamine/Znox 113 GM Tube 1 APPLIC TOPICAL ×2 (05:40→18:07)
[2020-05-27] MEDS: Nystatin Powder 15gm Bottle 1 APPLIC TOPICAL ×2 (05:41→18:07)
[2020-05-27 07:27] LABS: Hematocrit 30.8 % (40-54); Hemoglobin 9.4 g/dL (13.0-16.5)
[2020-05-27] MEDS: Meloxicam 15 MG Tablet PO (08:16)
[2020-05-27] MEDS: Carvedilol 3.125 MG TABLET PO ×2 (08:17→18:05)
[2020-05-27] MEDS: Iron Polysaccharide Complex 150 MG CAPSULE PO (08:18)
[2020-05-27] MEDS: Aspirin E.C. 81 MG Tablet PO ×2 (08:18→18:05)
[2020-05-27] MEDS: oxyCODONE 5 MG Tablet PO ×3 (08:22→22:01)
[2020-05-27] MEDS: BACITRACIN 15 GM Tube 1 APPLIC TOPICAL (11:47)
[2020-05-27] MEDS: 0.9% Saline Lock 10 ML Syringe IV ×2 (11:48→23:53)
--- NOTE | 2020-05-27 12:54 | NURSING ---
Dressing changed per orders, pt tolerated well.
[2020-05-27 13:26] VITALS: BP 110/65; PULSE 68; RESP 20; TEMP 36.4; O2SAT 97
[2020-05-27] MEDS: traZODone 50 MG Tablet PO (21:49)
[2020-05-27] MEDS: Atorvastatin Calcium 80 MG Tablet PO (21:49)
[2020-05-28 05:00] VITALS: BP 120/70; PULSE 60; RESP 18; TEMP 36.7; O2SAT 95
[2020-05-28 06:43] LABS: Hematocrit 30.1 % (40-54); Hemoglobin 9.4 g/dL (13.0-16.5)
[2020-05-28] MEDS: hydroCHLOROthiazide 25 MG Tablet PO (06:45)
[2020-05-28] MEDS: Ascorbic Acid 500 MG Tablet 1000 MG PO (06:45)
[2020-05-28] MEDS: Losartan Potassium 100 MG Tablet PO (06:45)
[2020-05-28] MEDS: Pantoprazole Sodium 20 MG Tablet PO (06:45)
[2020-05-28] MEDS: Senna Tablet 2 TABLET PO ×2 (06:45→17:30)
[2020-05-28] MEDS: Menthol/Lanolin/Calamine/Znox 113 GM Tube 1 APPLIC TOPICAL ×2 (06:57→17:30)
[2020-05-28] MEDS: Nystatin Powder 15gm Bottle 1 APPLIC TOPICAL ×2 (06:58→17:31)
[2020-05-28] MEDS: Polyethylene Glycol 3350 17 GM PACKET PO (07:00)
[2020-05-28] MEDS: Aspirin E.C. 81 MG Tablet PO ×2 (08:10→17:30)
[2020-05-28] MEDS: Iron Polysaccharide Complex 150 MG CAPSULE PO (08:10)
[2020-05-28] MEDS: Carvedilol 3.125 MG TABLET PO ×2 (08:10→17:31)
[2020-05-28] MEDS: Meloxicam 15 MG Tablet PO (08:10)
[2020-05-28 10:00] VITALS: PULSE 68; RESP 16; O2SAT 96
[2020-05-28] MEDS: 0.9% Saline Lock 10 ML Syringe IV ×2 (11:59→23:53)
[2020-05-28 13:23] VITALS: BP 102/60; PULSE 61; RESP 15; TEMP 36.4; O2SAT 95
[2020-05-28] MEDS: BACITRACIN 15 GM Tube 1 APPLIC TOPICAL (16:03)
[2020-05-28] MEDS: oxyCODONE 5 MG Tablet PO (20:29)
[2020-05-28] MEDS: Atorvastatin Calcium 80 MG Tablet PO (20:29)
[2020-05-28] MEDS: traZODone 50 MG Tablet PO (20:31)
[2020-05-29 05:00] VITALS: BP 136/81; PULSE 64; RESP 15; TEMP 37.2; O2SAT 96
[2020-05-29] MEDS: Losartan Potassium 100 MG Tablet PO (05:56)
[2020-05-29] MEDS: 0.9% Saline Lock 10 ML Syringe IV ×2 (05:57→12:23)
[2020-05-29] MEDS: Senna Tablet 2 TABLET PO ×2 (05:57→17:42)
[2020-05-29] MEDS: hydroCHLOROthiazide 25 MG Tablet PO (05:57)
[2020-05-29] MEDS: Pantoprazole Sodium 20 MG Tablet PO (05:57)
[2020-05-29] MEDS: Ascorbic Acid 500 MG Tablet 1000 MG PO (05:58)
[2020-05-29] MEDS: Menthol/Lanolin/Calamine/Znox 113 GM Tube 1 APPLIC TOPICAL ×2 (05:59→17:42)
[2020-05-29] MEDS: Nystatin Powder 15gm Bottle 1 APPLIC TOPICAL ×2 (06:00→17:42)
[2020-05-29] MEDS: Carvedilol 3.125 MG TABLET PO ×2 (08:19→17:42)
[2020-05-29] MEDS: Meloxicam 15 MG Tablet PO (08:19)
[2020-05-29] MEDS: Iron Polysaccharide Complex 150 MG CAPSULE PO (08:19)
[2020-05-29] MEDS: Aspirin E.C. 81 MG Tablet PO ×2 (08:19→17:42)
[2020-05-29 14:38] VITALS: BP 106/70; PULSE 72; RESP 16; TEMP 36.4; O2SAT 96
--- NOTE | 2020-05-29 15:03 | NURSING ---
wound photo: left knee
--- NOTE | 2020-05-29 15:05 | NURSING ---
wound photo: left lateral thigh (donor site)
[2020-05-29] MEDS: BACITRACIN 15 GM Tube 1 APPLIC TOPICAL (16:16)
[2020-05-29] MEDS: oxyCODONE 5 MG Tablet PO ×2 (16:21→21:34)
--- NOTE | 2020-05-29 20:03 | NURSING ---
PT tested Positive for Covid had a family visit on 06/22/20 pt is to wear mask when out of room and when staff is in room. Will monitor for signs and symptoms.
[2020-05-29] MEDS: Atorvastatin Calcium 80 MG Tablet PO (21:32)
[2020-05-29] MEDS: traZODone 50 MG Tablet PO (21:32)
[2020-05-30] MEDS: 0.9% Saline Lock 10 ML Syringe IV ×2 (00:10→13:09)
[2020-05-30 06:01] VITALS: BP 132/73; PULSE 55; RESP 16; TEMP 36.1; O2SAT 95
[2020-05-30] MEDS: Nystatin Powder 15gm Bottle 1 APPLIC TOPICAL ×2 (06:03→17:41)
[2020-05-30] MEDS: Menthol/Lanolin/Calamine/Znox 113 GM Tube 1 APPLIC TOPICAL ×2 (06:03→17:41)
[2020-05-30] MEDS: Losartan Potassium 100 MG Tablet PO (06:04)
[2020-05-30] MEDS: hydroCHLOROthiazide 25 MG Tablet PO (06:05)
[2020-05-30] MEDS: Ascorbic Acid 500 MG Tablet 1000 MG PO (06:05)
[2020-05-30] MEDS: Pantoprazole Sodium 20 MG Tablet PO (06:05)
[2020-05-30] MEDS: oxyCODONE 5 MG Tablet PO ×3 (07:28→21:12)
[2020-05-30] MEDS: Aspirin E.C. 81 MG Tablet PO ×2 (07:29→17:41)
[2020-05-30] MEDS: Meloxicam 15 MG Tablet PO (07:29)
[2020-05-30] MEDS: Carvedilol 3.125 MG TABLET PO ×2 (07:29→17:41)
[2020-05-30] MEDS: Iron Polysaccharide Complex 150 MG CAPSULE PO (07:30)
[2020-05-30 10:00] VITALS: PULSE 73; RESP 16; O2SAT 99
--- NOTE | 2020-05-30 12:44 | NURSING ---
Addendum entered by Davina Medina 05/30/20 13:39: no new orders, continue drsg changes per plastic surgeon orders. dressing changed at office, they applied xeroform and sterile ABD. Original Note: pt returned from appt via cot.
[2020-05-30] MEDS: BACITRACIN 15 GM Tube 1 APPLIC TOPICAL (13:00)
[2020-05-30 14:29] VITALS: BP 130/71; PULSE 65; RESP 16; TEMP 36.1; O2SAT 96
[2020-05-30] MEDS: Senna Tablet 2 TABLET PO (17:41)
[2020-05-30] MEDS: Atorvastatin Calcium 80 MG Tablet PO (21:13)
[2020-05-30] MEDS: traZODone 50 MG Tablet PO (21:13)
[2020-05-31] MEDS: 0.9% Saline Lock 10 ML Syringe IV ×4 (00:36→23:52)
[2020-05-31 05:11] VITALS: BP 132/72; PULSE 60; RESP 16; TEMP 36.1; O2SAT 95
[2020-05-31] MEDS: Menthol/Lanolin/Calamine/Znox 113 GM Tube 1 APPLIC TOPICAL ×2 (05:17→17:23)
[2020-05-31] MEDS: hydroCHLOROthiazide 25 MG Tablet PO (05:17)
[2020-05-31] MEDS: Pantoprazole Sodium 20 MG Tablet PO (05:17)
[2020-05-31] MEDS: Senna Tablet 2 TABLET PO ×2 (05:17→17:22)
[2020-05-31] MEDS: Losartan Potassium 100 MG Tablet PO (05:17)
[2020-05-31] MEDS: Ascorbic Acid 500 MG Tablet 1000 MG PO (05:17)
[2020-05-31] MEDS: Nystatin Powder 15gm Bottle 1 APPLIC TOPICAL ×2 (05:19→17:23)
[2020-05-31 05:59] LABS: Absolute Lymphocyte Count 1.23 X10^3/uL (0.83-4.51); Absolute Neutrophil Count 4.1 X10^3/uL (2.0-7.7); Basophil# 0.03 X10^3/uL; Basophil% 0.5 % (0-1); Eosinophil# 0.07 X10^3/uL; Eosinophils% 1.2 % (0-5); Hematocrit 30.6 % (40-54); Hemoglobin 9.4 g/dL (13.0-16.5); Lymphocyte # 1.23 X10^3/ul (4.0); Lymphocyte % 20.7 % (19-41); Mean Corp Hgb Conc 30.7 g/dL (32-36); Mean Corpuscular Hgb 27.6 pg (27.0-32.0); Mean Corpuscular Volume 89.7 fL (80-94); Mean Platelet Vol. 8.7 fl (6.2-12.0); Monocyte# 0.53 X10^3/uL; Monocyte% 8.9 % (0-10); NRBC Flagged by Analyzer 0 % (0-5); Neutrophil # 4.06 X10^3/uL (2.7-7.7); Neutrophil % 68.4 % (47-70); Platelet Count 422 K/mm3 (150-450); RBC Distribution Width CV 15.1 % (11.6-14.6); Red Blood Count 3.41 M/mm3 (4.6-6.2); White Blood Count 5.9 K/mm3 (4.4-11.0)
[2020-05-31 06:30] LABS: Anion Gap 7 (5-15); BUN 10 mg/dL (7-18); Calcium,Total 8.6 mg/dL (8.5-10.1); Chloride 100 mmol/L (98-107); Creatinine, Serum 0.56 mg/dL (0.70-1.30); EST Glomerular Filtration Rate 156 mL/min (>60); Est Glom Filt Rate - Afr Amer 189 mL/min (>60); Estimated Creatinine Clearance 157.18 ml/min; Glucose 99 mg/dL (74-106); Sodium Level 135 mmol/L (136-145)
[2020-05-31] MEDS: Meloxicam 15 MG Tablet PO (08:29)
[2020-05-31] MEDS: Aspirin E.C. 81 MG Tablet PO ×2 (08:30→17:22)
[2020-05-31] MEDS: Carvedilol 3.125 MG TABLET PO ×2 (08:30→17:22)
[2020-05-31] MEDS: Iron Polysaccharide Complex 150 MG CAPSULE PO (08:30)
[2020-05-31 15:11] VITALS: BP 116/68; PULSE 62; RESP 15; TEMP 35.8; O2SAT 96
[2020-05-31] MEDS: BACITRACIN 15 GM Tube 1 APPLIC TOPICAL (17:23)
[2020-05-31] MEDS: oxyCODONE 5 MG Tablet PO (20:26)
[2020-05-31] MEDS: traZODone 50 MG Tablet PO (21:41)
[2020-05-31] MEDS: Atorvastatin Calcium 80 MG Tablet PO (21:41)
[2020-06-01 06:20] VITALS: BP 131/77; PULSE 77; RESP 16; TEMP 36.9; O2SAT 96
[2020-06-01] MEDS: Pantoprazole Sodium 20 MG Tablet PO (06:25)
[2020-06-01] MEDS: Losartan Potassium 100 MG Tablet PO (06:25)
[2020-06-01] MEDS: Senna Tablet 2 TABLET PO ×2 (06:25→16:39)
[2020-06-01] MEDS: hydroCHLOROthiazide 25 MG Tablet PO (06:25)
[2020-06-01] MEDS: Nystatin Powder 15gm Bottle 1 APPLIC TOPICAL ×2 (06:25→16:39)
[2020-06-01] MEDS: Menthol/Lanolin/Calamine/Znox 113 GM Tube 1 APPLIC TOPICAL ×2 (06:25→16:40)
[2020-06-01] MEDS: Ascorbic Acid 500 MG Tablet 1000 MG PO (06:25)
[2020-06-01] MEDS: Meloxicam 15 MG Tablet PO (08:06)
[2020-06-01] MEDS: Carvedilol 3.125 MG TABLET PO ×2 (08:06→16:39)
[2020-06-01] MEDS: Aspirin E.C. 81 MG Tablet PO ×2 (08:06→16:39)
[2020-06-01] MEDS: Iron Polysaccharide Complex 150 MG CAPSULE PO (08:06)
[2020-06-01 08:08] VITALS: BP 123/79; PULSE 63
[2020-06-01] MEDS: 0.9% Saline Lock 10 ML Syringe IV ×2 (09:17→11:36)
--- NOTE | 2020-06-01 11:05 | NURSING ---
SALVADOR ENRIQUEZ/WOUND NURSE CHANGED PT DRESSINGS TODAY.
[2020-06-01 14:03] VITALS: BP 116/65; PULSE 50; RESP 17; TEMP 36.1; O2SAT 96
[2020-06-01 15:29] VITALS: PULSE 61; RESP 16; O2SAT 96
[2020-06-01] MEDS: BACITRACIN 15 GM Tube 1 APPLIC TOPICAL (16:41)
--- NOTE | 2020-06-01 18:48 | NURSING ---
Pt will be getting the Covid vaccine Friday06/06/20 @ 11:00 am.
[2020-06-01] MEDS: traZODone 50 MG Tablet PO (20:24)
[2020-06-01] MEDS: Atorvastatin Calcium 80 MG Tablet PO (20:25)
[2020-06-01 20:27] VITALS: BP 139/80; PULSE 68; RESP 16; TEMP 37; O2SAT 97
[2020-06-01] MEDS: oxyCODONE 5 MG Tablet PO (20:33)
[2020-06-02] MEDS: hydroCHLOROthiazide 25 MG Tablet PO (04:56)
[2020-06-02] MEDS: Pantoprazole Sodium 20 MG Tablet PO (04:56)
[2020-06-02] MEDS: Menthol/Lanolin/Calamine/Znox 113 GM Tube 1 APPLIC TOPICAL ×2 (04:56→17:11)
[2020-06-02] MEDS: Losartan Potassium 100 MG Tablet PO (04:56)
[2020-06-02] MEDS: Senna Tablet 2 TABLET PO ×2 (04:56→17:11)
[2020-06-02] MEDS: Ascorbic Acid 500 MG Tablet 1000 MG PO (04:57)
[2020-06-02] MEDS: Nystatin Powder 15gm Bottle 1 APPLIC TOPICAL ×2 (04:57→17:12)
[2020-06-02] MEDS: Meloxicam 15 MG Tablet PO (08:40)
[2020-06-02] MEDS: Carvedilol 3.125 MG TABLET PO ×2 (08:40→17:13)
[2020-06-02] MEDS: Aspirin E.C. 81 MG Tablet PO ×2 (08:40→17:11)
[2020-06-02] MEDS: Iron Polysaccharide Complex 150 MG CAPSULE PO (08:40)
--- NOTE | 2020-06-02 12:29 | CASEMGMT ---
Social Work Spoke with pt's to discuss pt's progress and DC planning. Explained pt is progressing well in therapy and is able to complete all tasks at [facility]; however, pt may be self-limiting at times. works 3 days/wk - explained IDT feels he will be safe to be home alone during that time, just to have meals and things easily accessible for him. Explained SW will order HHC at time of DC and any DME he needs. His IV ATB are done 06/13, inquired about DC 06/14. explained she currently had COVID and her f/u appt with the Dr after quarantine is 06/12, then she would go back to work that week. Inquired about weekend DC, if is cleared from COVID restrictions. agreeable and will contact SW after appt to finalize DC plans. Will continue to follow. RA PalenciaW
--- NOTE | 2020-06-02 13:52 | NURSING ---
Notified Dr. Velasquez's office that pt does not want to go to the appointment. They stated that we could fax labs to their facility.
[2020-06-02 14:03] VITALS: BP 105/62; PULSE 67; RESP 16; TEMP 36.3; O2SAT 97
[2020-06-02] MEDS: BACITRACIN 15 GM Tube 1 APPLIC TOPICAL (17:12)
[2020-06-02] MEDS: Atorvastatin Calcium 80 MG Tablet PO (22:15)
[2020-06-02] MEDS: traZODone 50 MG Tablet PO (22:15)
[2020-06-02] MEDS: oxyCODONE 5 MG Tablet PO (22:17)
[2020-06-02] MEDS: Acetaminophen 500 MG Tablet 1000 MG PO (22:17)
[2020-06-02] MEDS: 0.9% Saline Lock 10 ML Syringe IV (22:39)
[2020-06-03 05:58] VITALS: BP 115/75; PULSE 65; RESP 16; TEMP 36.2; O2SAT 96
[2020-06-03] MEDS: Nystatin Powder 15gm Bottle 1 APPLIC TOPICAL ×2 (06:01→17:52)
[2020-06-03] MEDS: Losartan Potassium 100 MG Tablet PO (06:01)
[2020-06-03] MEDS: Menthol/Lanolin/Calamine/Znox 113 GM Tube 1 APPLIC TOPICAL ×2 (06:01→17:52)
[2020-06-03] MEDS: Senna Tablet 2 TABLET PO ×2 (06:02→17:51)
[2020-06-03] MEDS: Pantoprazole Sodium 20 MG Tablet PO (06:02)
[2020-06-03] MEDS: hydroCHLOROthiazide 25 MG Tablet PO (06:02)
[2020-06-03] MEDS: Ascorbic Acid 500 MG Tablet 1000 MG PO (06:03)
[2020-06-03] MEDS: 0.9% Saline Lock 10 ML Syringe IV ×4 (07:48→23:55)
[2020-06-03] MEDS: Aspirin E.C. 81 MG Tablet PO ×2 (07:53→17:52)
[2020-06-03] MEDS: Carvedilol 3.125 MG TABLET PO ×2 (07:53→17:52)
[2020-06-03] MEDS: Iron Polysaccharide Complex 150 MG CAPSULE PO (07:53)
[2020-06-03] MEDS: Meloxicam 15 MG Tablet PO (07:53)
[2020-06-03 07:56] VITALS: BP 127/71; PULSE 60
[2020-06-03] MEDS: BACITRACIN 15 GM Tube 1 APPLIC TOPICAL (11:22)
[2020-06-03 15:35] VITALS: BP 114/72; PULSE 57; RESP 20; TEMP 37.3; O2SAT 95
[2020-06-03] MEDS: traZODone 50 MG Tablet PO (21:23)
[2020-06-03] MEDS: oxyCODONE 5 MG Tablet PO (21:23)
[2020-06-03] MEDS: Atorvastatin Calcium 80 MG Tablet PO (21:23)
[2020-06-04 05:00] VITALS: BP 136/68; PULSE 68; RESP 16; TEMP 36.6; O2SAT 95
[2020-06-04] MEDS: Ascorbic Acid 500 MG Tablet 1000 MG PO (06:33)
[2020-06-04] MEDS: Senna Tablet 2 TABLET PO ×2 (06:33→16:43)
[2020-06-04] MEDS: Losartan Potassium 100 MG Tablet PO (06:33)
[2020-06-04] MEDS: Pantoprazole Sodium 20 MG Tablet PO (06:33)
[2020-06-04] MEDS: hydroCHLOROthiazide 25 MG Tablet PO (06:33)
[2020-06-04] MEDS: Menthol/Lanolin/Calamine/Znox 113 GM Tube 1 APPLIC TOPICAL ×2 (06:39→16:46)
[2020-06-04] MEDS: Nystatin Powder 15gm Bottle 1 APPLIC TOPICAL ×2 (06:39→16:46)
[2020-06-04] MEDS: 0.9% Saline Lock 10 ML Syringe IV (08:14)
[2020-06-04] MEDS: Carvedilol 3.125 MG TABLET PO ×2 (08:15→16:42)
[2020-06-04] MEDS: Aspirin E.C. 81 MG Tablet PO ×2 (08:15→16:42)
[2020-06-04] MEDS: Iron Polysaccharide Complex 150 MG CAPSULE PO (08:15)
[2020-06-04] MEDS: Meloxicam 15 MG Tablet PO (08:16)
[2020-06-04 08:18] VITALS: BP 125/72; PULSE 60
[2020-06-04 14:22] VITALS: BP 109/62; PULSE 70; RESP 16; TEMP 35.9; O2SAT 97
[2020-06-04] MEDS: BACITRACIN 15 GM Tube 1 APPLIC TOPICAL (21:17)
[2020-06-04] MEDS: oxyCODONE 5 MG Tablet PO (21:36)
[2020-06-04] MEDS: Atorvastatin Calcium 80 MG Tablet PO (21:37)
[2020-06-04] MEDS: traZODone 50 MG Tablet PO (21:37)
[2020-06-05 05:00] VITALS: BP 131/72; PULSE 63; RESP 16; TEMP 37.2; O2SAT 96
[2020-06-05] MEDS: Ascorbic Acid 500 MG Tablet 1000 MG PO (06:22)
[2020-06-05] MEDS: Senna Tablet 2 TABLET PO ×2 (06:23→17:01)
[2020-06-05] MEDS: Nystatin Powder 15gm Bottle 1 APPLIC TOPICAL ×2 (06:24→17:02)
[2020-06-05] MEDS: Pantoprazole Sodium 20 MG Tablet PO (06:24)
[2020-06-05] MEDS: Menthol/Lanolin/Calamine/Znox 113 GM Tube 1 APPLIC TOPICAL ×2 (06:24→17:02)
[2020-06-05] MEDS: Losartan Potassium 100 MG Tablet PO (06:28)
[2020-06-05] MEDS: hydroCHLOROthiazide 25 MG Tablet PO (06:28)
[2020-06-05] MEDS: Aspirin E.C. 81 MG Tablet PO ×2 (08:28→17:01)
[2020-06-05] MEDS: Carvedilol 3.125 MG TABLET PO ×2 (08:28→17:02)
[2020-06-05] MEDS: Iron Polysaccharide Complex 150 MG CAPSULE PO (08:28)
[2020-06-05] MEDS: Meloxicam 15 MG Tablet PO (08:29)
[2020-06-05 10:00] VITALS: PULSE 65; RESP 16; O2SAT 99
[2020-06-05] MEDS: BACITRACIN 15 GM Tube 1 APPLIC TOPICAL (12:00)
[2020-06-05 14:07] VITALS: BP 132/78; PULSE 66; RESP 16; TEMP 35.9; O2SAT 97
--- NOTE | 2020-06-05 14:24 | NURSING ---
Contacted [facility] asking if the sutures to the patients outer left knee can be removed. Waiting for return call.
--- NOTE | 2020-06-05 17:33 | NURSING ---
Received return call from Dr Cash's orthopedic office, received order to remove sutures to right outer knee.
--- NOTE | 2020-06-05 18:35 | NURSING ---
3 sutures removed from left outer knee per orders. pt tolerated well.
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
[2020-06-05] MEDS: traZODone 50 MG Tablet PO (21:12)
[2020-06-05] MEDS: oxyCODONE 5 MG Tablet PO (21:12)
[2020-06-05] MEDS: Atorvastatin Calcium 80 MG Tablet PO (21:12)
[2020-06-05] MEDS: 0.9% Saline Lock 10 ML Syringe IV (23:30)
[2020-06-06] MEDS: Pantoprazole Sodium 20 MG Tablet PO (06:04)
[2020-06-06] MEDS: Ascorbic Acid 500 MG Tablet 1000 MG PO (06:04)
[2020-06-06] MEDS: hydroCHLOROthiazide 25 MG Tablet PO (06:04)
[2020-06-06] MEDS: Senna Tablet 2 TABLET PO ×2 (06:04→17:47)
[2020-06-06] MEDS: Losartan Potassium 100 MG Tablet PO (06:05)
[2020-06-06] MEDS: Nystatin Powder 15gm Bottle 1 APPLIC TOPICAL ×2 (06:09→17:45)
[2020-06-06] MEDS: Menthol/Lanolin/Calamine/Znox 113 GM Tube 1 APPLIC TOPICAL ×2 (06:10→17:47)
[2020-06-06 06:11] VITALS: BP 120/70; PULSE 60; RESP 16; TEMP 36.7; O2SAT 98
[2020-06-06] MEDS: Carvedilol 3.125 MG TABLET PO ×2 (08:45→17:48)
[2020-06-06] MEDS: Aspirin E.C. 81 MG Tablet PO ×2 (08:45→17:47)
[2020-06-06] MEDS: Meloxicam 15 MG Tablet PO (08:45)
[2020-06-06] MEDS: Iron Polysaccharide Complex 150 MG CAPSULE PO (08:45)
[2020-06-06] MEDS: BACITRACIN 15 GM Tube 1 APPLIC TOPICAL (08:54)
[2020-06-06 14:16] VITALS: BP 106/67; PULSE 62; RESP 16; TEMP 35.9; O2SAT 97
[2020-06-06] MEDS: oxyCODONE 5 MG Tablet PO ×2 (18:13→22:13)
[2020-06-06] MEDS: Atorvastatin Calcium 80 MG Tablet PO (22:08)
[2020-06-06] MEDS: traZODone 50 MG Tablet PO (22:09)
[2020-06-06] MEDS: Acetaminophen 500 MG Tablet 1000 MG PO (22:12)
[2020-06-07] MEDS: hydroCHLOROthiazide 25 MG Tablet PO (05:31)
[2020-06-07] MEDS: Senna Tablet 2 TABLET PO ×2 (05:31→17:29)
[2020-06-07] MEDS: Pantoprazole Sodium 20 MG Tablet PO (05:31)
[2020-06-07] MEDS: Menthol/Lanolin/Calamine/Znox 113 GM Tube 1 APPLIC TOPICAL ×2 (05:31→17:30)
[2020-06-07] MEDS: Losartan Potassium 100 MG Tablet PO (05:31)
[2020-06-07] MEDS: Nystatin Powder 15gm Bottle 1 APPLIC TOPICAL ×2 (05:32→17:30)
[2020-06-07] MEDS: Ascorbic Acid 500 MG Tablet 1000 MG PO (05:35)
[2020-06-07 05:40] VITALS: BP 132/70; PULSE 57; RESP 16; TEMP 36.2; O2SAT 97
[2020-06-07 06:02] LABS: Absolute Lymphocyte Count 1.32 X10^3/uL (0.83-4.51); Absolute Neutrophil Count 3.7 X10^3/uL (2.0-7.7); Basophil# 0.06 X10^3/uL; Eosinophil# 0.12 X10^3/uL; Eosinophils% 2.1 % (0-5); Hematocrit 31.7 % (40-54); Hemoglobin 9.8 g/dL (13.0-16.5); Lymphocyte # 1.32 X10^3/ul (4.0); Mean Corp Hgb Conc 30.9 g/dL (32-36); Mean Corpuscular Hgb 27.8 pg (27.0-32.0); Mean Corpuscular Volume 89.8 fL (80-94); Mean Platelet Vol. 8.8 fl (6.2-12.0); Monocyte# 0.56 X10^3/uL; Monocyte% 9.7 % (0-10); NRBC Flagged by Analyzer 0 % (0-5); Neutrophil # 3.68 X10^3/uL (2.7-7.7); Platelet Count 372 K/mm3 (150-450); RBC Distribution Width CV 15.1 % (11.6-14.6); RBC Distribution Width SD 49.5 fl (35.1-43.9); Red Blood Count 3.53 M/mm3 (4.6-6.2); White Blood Count 5.8 K/mm3 (4.4-11.0)
[2020-06-07 06:31] LABS: Anion Gap 4 (5-15); BUN 8 mg/dL (7-18); BUN/Creat Ratio 11.4 RATIO (10-20); Calcium,Total 8.6 mg/dL (8.5-10.1); Chloride 101 mmol/L (98-107); EST Glomerular Filtration Rate 120 mL/min (>60); Est Glom Filt Rate - Afr Amer 145 mL/min (>60); Estimated Creatinine Clearance 125.74 ml/min; Glucose 94 mg/dL (74-106); Potassium 3.8 mmol/L (3.5-5.1); Sodium Level 137 mmol/L (136-145)
[2020-06-07] MEDS: Carvedilol 3.125 MG TABLET PO ×2 (08:07→17:29)
[2020-06-07] MEDS: Iron Polysaccharide Complex 150 MG CAPSULE PO (08:07)
[2020-06-07] MEDS: Meloxicam 15 MG Tablet PO (08:07)
[2020-06-07] MEDS: Aspirin E.C. 81 MG Tablet PO ×2 (08:07→17:29)
[2020-06-07] MEDS: 0.9% Saline Lock 10 ML Syringe IV ×2 (12:43→17:27)
[2020-06-07 14:11] VITALS: BP 92/54; PULSE 64; RESP 12; TEMP 36.8; O2SAT 96
--- NOTE | 2020-06-07 16:34 | NURSING ---
Dr. Velasquez office called and asked about why pt did not show up for his appt today. Let them know that the appt was cancelled per pt and labs were sent per request. Dr. Bridges Nurse stated that she would like a CRP lab drawn and orders sent.
[2020-06-07] MEDS: BACITRACIN 15 GM Tube 1 APPLIC TOPICAL (17:37)
[2020-06-07 21:15] VITALS: PULSE 66; RESP 16; O2SAT 96
[2020-06-07] MEDS: oxyCODONE 5 MG Tablet PO (21:42)
[2020-06-07] MEDS: traZODone 50 MG Tablet PO (21:42)
[2020-06-07] MEDS: Atorvastatin Calcium 80 MG Tablet PO (21:43)
[2020-06-08 05:49] VITALS: BP 121/75; PULSE 70; RESP 16; TEMP 36.4; O2SAT 96
[2020-06-08] MEDS: Nystatin Powder 15gm Bottle 1 APPLIC TOPICAL (05:50)
[2020-06-08] MEDS: Menthol/Lanolin/Calamine/Znox 113 GM Tube 1 APPLIC TOPICAL ×2 (05:50→17:23)
[2020-06-08] MEDS: Senna Tablet 2 TABLET PO ×2 (05:52→17:22)
[2020-06-08] MEDS: Pantoprazole Sodium 20 MG Tablet PO (05:52)
[2020-06-08] MEDS: hydroCHLOROthiazide 25 MG Tablet PO (05:53)
[2020-06-08] MEDS: Losartan Potassium 100 MG Tablet PO (05:53)
[2020-06-08] MEDS: Ascorbic Acid 500 MG Tablet 1000 MG PO (05:53)
[2020-06-08] MEDS: Iron Polysaccharide Complex 150 MG CAPSULE PO (08:34)
[2020-06-08] MEDS: Aspirin E.C. 81 MG Tablet PO ×2 (08:34→17:22)
[2020-06-08] MEDS: Meloxicam 15 MG Tablet PO (08:34)
[2020-06-08] MEDS: Carvedilol 3.125 MG TABLET PO ×2 (08:34→17:22)
[2020-06-08 08:41] VITALS: BP 107/64; PULSE 74
[2020-06-08] MEDS: 0.9% Saline Lock 10 ML Syringe IV ×2 (11:57→23:59)
[2020-06-08 14:34] VITALS: BP 95/56; PULSE 76; RESP 14; TEMP 36.4; O2SAT 97
[2020-06-08] MEDS: Polyethylene Glycol 3350 17 GM PACKET PO (17:22)
[2020-06-08] MEDS: BACITRACIN 15 GM Tube 1 APPLIC TOPICAL (19:48)
[2020-06-08] MEDS: oxyCODONE 5 MG Tablet PO (21:49)
[2020-06-08] MEDS: Acetaminophen 500 MG Tablet 1000 MG PO (21:49)
[2020-06-08] MEDS: Atorvastatin Calcium 80 MG Tablet PO (21:50)
[2020-06-08] MEDS: traZODone 50 MG Tablet PO (21:50)
[2020-06-09 05:14] VITALS: BP 130/67; PULSE 65; RESP 16; TEMP 36.4; O2SAT 96
[2020-06-09] MEDS: Senna Tablet 2 TABLET PO ×2 (05:19→17:47)
[2020-06-09] MEDS: Losartan Potassium 100 MG Tablet PO (05:20)
[2020-06-09] MEDS: Ascorbic Acid 500 MG Tablet 1000 MG PO (05:20)
[2020-06-09] MEDS: Menthol/Lanolin/Calamine/Znox 113 GM Tube 1 APPLIC TOPICAL ×2 (05:20→17:27)
[2020-06-09] MEDS: Pantoprazole Sodium 20 MG Tablet PO (05:20)
[2020-06-09] MEDS: hydroCHLOROthiazide 25 MG Tablet PO (05:20)
[2020-06-09] MEDS: 0.9% Saline Lock 10 ML Syringe IV ×2 (08:28→12:14)
[2020-06-09] MEDS: Meloxicam 15 MG Tablet PO (08:31)
[2020-06-09] MEDS: Aspirin E.C. 81 MG Tablet PO ×2 (08:31→17:26)
[2020-06-09] MEDS: Iron Polysaccharide Complex 150 MG CAPSULE PO (08:31)
[2020-06-09] MEDS: Carvedilol 3.125 MG TABLET PO ×2 (08:31→17:26)
[2020-06-09 08:36] VITALS: BP 105/63; PULSE 67
[2020-06-09] MEDS: Polyethylene Glycol 3350 17 GM PACKET PO ×2 (08:49→17:30)
[2020-06-09 13:09] VITALS: BP 96/58; PULSE 79; RESP 17; TEMP 36.8; O2SAT 99
--- NOTE | 2020-06-09 13:19 | NURSING ---
FAXED OVER CRP RESULTS TO DR. SANCHEZ
--- NOTE | 2020-06-09 15:10 | NURSING ---
Received call from Dr. Velasquez's office, after reviewing the patient's current labs, Dr. Velasquez wants the patient to continue on antibiotics until 06/26/20. SCassandraW. made aware.
[2020-06-09] MEDS: Nystatin Powder 15gm Bottle 1 APPLIC TOPICAL (17:27)
[2020-06-09] MEDS: BACITRACIN 15 GM Tube 1 APPLIC TOPICAL (20:20)
[2020-06-09] MEDS: traZODone 50 MG Tablet PO (21:56)
[2020-06-09] MEDS: Atorvastatin Calcium 80 MG Tablet PO (21:57)
[2020-06-09] MEDS: Acetaminophen 500 MG Tablet 1000 MG PO (22:00)
[2020-06-09] MEDS: oxyCODONE 5 MG Tablet PO (22:01)
[2020-06-10] MEDS: 0.9% Saline Lock 10 ML Syringe IV ×4 (00:13→17:45)
[2020-06-10 06:17] VITALS: BP 131/77; PULSE 57; RESP 16; TEMP 35.5; O2SAT 97
[2020-06-10] MEDS: Senna Tablet 2 TABLET PO ×2 (06:21→17:42)
[2020-06-10] MEDS: Losartan Potassium 100 MG Tablet PO (06:21)
[2020-06-10] MEDS: Pantoprazole Sodium 20 MG Tablet PO (06:21)
[2020-06-10] MEDS: Ascorbic Acid 500 MG Tablet 1000 MG PO (06:21)
[2020-06-10] MEDS: hydroCHLOROthiazide 25 MG Tablet PO (06:21)
[2020-06-10] MEDS: Polyethylene Glycol 3350 17 GM PACKET PO ×2 (06:26→17:43)
[2020-06-10] MEDS: Nystatin Powder 15gm Bottle 1 APPLIC TOPICAL ×2 (06:27→17:43)
[2020-06-10] MEDS: Menthol/Lanolin/Calamine/Znox 113 GM Tube 1 APPLIC TOPICAL ×2 (06:27→17:43)
[2020-06-10] MEDS: Iron Polysaccharide Complex 150 MG CAPSULE PO (08:21)
[2020-06-10] MEDS: Aspirin E.C. 81 MG Tablet PO ×2 (08:21→17:42)
[2020-06-10] MEDS: Meloxicam 15 MG Tablet PO (08:21)
[2020-06-10] MEDS: Carvedilol 3.125 MG TABLET PO ×2 (08:22→17:42)
[2020-06-10 10:00] VITALS: PULSE 66; RESP 18; O2SAT 99
[2020-06-10] MEDS: BACITRACIN 15 GM Tube 1 APPLIC TOPICAL (12:54)
[2020-06-10 13:39] VITALS: BP 98/56; PULSE 61; RESP 16; TEMP 36.1; O2SAT 97
--- NOTE | 2020-06-10 15:26 | NURSING ---
Changed dressing to left leg no drainage noted. Pt tolerated well call light within reach.
[2020-06-10] MEDS: traZODone 50 MG Tablet PO (21:38)
[2020-06-10] MEDS: Atorvastatin Calcium 80 MG Tablet PO (21:38)
[2020-06-10] MEDS: Acetaminophen 500 MG Tablet 1000 MG PO (21:41)
[2020-06-10] MEDS: oxyCODONE 5 MG Tablet PO (21:42)
[2020-06-11] MEDS: Senna Tablet 2 TABLET PO ×2 (06:46→17:11)
[2020-06-11] MEDS: hydroCHLOROthiazide 25 MG Tablet PO (06:46)
[2020-06-11] MEDS: Losartan Potassium 100 MG Tablet PO (06:46)
[2020-06-11] MEDS: Ascorbic Acid 500 MG Tablet 1000 MG PO (06:46)
[2020-06-11] MEDS: Pantoprazole Sodium 20 MG Tablet PO (06:46)
[2020-06-11] MEDS: Polyethylene Glycol 3350 17 GM PACKET PO ×2 (06:46→17:11)
[2020-06-11] MEDS: Nystatin Powder 15gm Bottle 1 APPLIC TOPICAL ×2 (06:46→17:18)
[2020-06-11] MEDS: Menthol/Lanolin/Calamine/Znox 113 GM Tube 1 APPLIC TOPICAL ×2 (06:47→17:18)
[2020-06-11 06:53] VITALS: BP 129/77; PULSE 55; RESP 16; TEMP 36.8; O2SAT 95
[2020-06-11] MEDS: Meloxicam 15 MG Tablet PO (08:53)
[2020-06-11] MEDS: Iron Polysaccharide Complex 150 MG CAPSULE PO (08:53)
[2020-06-11] MEDS: Aspirin E.C. 81 MG Tablet PO ×2 (08:53→17:11)
[2020-06-11] MEDS: Carvedilol 3.125 MG TABLET PO ×2 (08:53→17:11)
[2020-06-11] MEDS: BACITRACIN 15 GM Tube 1 APPLIC TOPICAL (11:01)
[2020-06-11] MEDS: 0.9% Saline Lock 10 ML Syringe IV ×2 (11:19→17:11)
[2020-06-11 14:38] VITALS: BP 94/60; PULSE 66; RESP 14; TEMP 36; O2SAT 97
[2020-06-11 20:28] VITALS: BP 104/65; PULSE 60; RESP 18; TEMP 36.8; O2SAT 97
[2020-06-11] MEDS: oxyCODONE 5 MG Tablet PO (21:47)
[2020-06-11] MEDS: Atorvastatin Calcium 80 MG Tablet PO (21:47)
[2020-06-11] MEDS: traZODone 50 MG Tablet PO (21:48)
[2020-06-11] MEDS: Acetaminophen 500 MG Tablet 1000 MG PO (21:49)
[2020-06-12] MEDS: 0.9% Saline Lock 10 ML Syringe IV ×2 (00:02→13:04)
[2020-06-12] MEDS: Ascorbic Acid 500 MG Tablet 1000 MG PO (05:40)
[2020-06-12] MEDS: hydroCHLOROthiazide 25 MG Tablet PO (05:40)
[2020-06-12] MEDS: Senna Tablet 2 TABLET PO ×2 (05:40→17:12)
[2020-06-12] MEDS: Pantoprazole Sodium 20 MG Tablet PO (05:40)
[2020-06-12] MEDS: Losartan Potassium 100 MG Tablet PO (05:40)
[2020-06-12] MEDS: Polyethylene Glycol 3350 17 GM PACKET PO ×2 (05:40→17:13)
[2020-06-12] MEDS: Nystatin Powder 15gm Bottle 1 APPLIC TOPICAL ×2 (05:49→17:14)
[2020-06-12] MEDS: Menthol/Lanolin/Calamine/Znox 113 GM Tube 1 APPLIC TOPICAL ×2 (05:49→17:13)
[2020-06-12] MEDS: Meloxicam 15 MG Tablet PO (08:51)
[2020-06-12] MEDS: Aspirin E.C. 81 MG Tablet PO ×2 (08:51→17:12)
[2020-06-12] MEDS: Iron Polysaccharide Complex 150 MG CAPSULE PO (08:51)
[2020-06-12] MEDS: Carvedilol 3.125 MG TABLET PO ×2 (08:51→17:13)
[2020-06-12 08:53] VITALS: BP 100/63; PULSE 61
[2020-06-12 14:12] VITALS: BP 100/67; PULSE 70; RESP 18; TEMP 36.9; O2SAT 99
--- NOTE | 2020-06-12 16:01 | NURSING ---
wound photo: left knee
--- NOTE | 2020-06-12 16:02 | NURSING ---
wound photo: left lateral thigh
--- NOTE | 2020-06-12 16:36 | CASEMGMT ---
Addendum entered by Olivia Medina 06/13/20 10:47: Provided pt with pricing of $594/wk. Pt stated he is unable to afford that and agreeable to remain until the end of the IVs. Original Note: Social Work Spoke with pt about extensive of IV ATBs and request to DC home prior. Explained sent information to I to run cost of IV ATB and supplies at home. Explained pt/ would need to learn how to administer IVs or come into the infusion clinic twice a day to run IVs because [facility] nurse would not be in home to assist for all doses. Pt expressed understanding. SW to notify of pricing. Will continue to follow. Olivia Medina, TURRET PUNCH OPERATOR TEST ANALYST
[2020-06-12] MEDS: BACITRACIN 15 GM Tube 1 APPLIC TOPICAL (17:13)
[2020-06-12] MEDS: Atorvastatin Calcium 80 MG Tablet PO (21:57)
[2020-06-12] MEDS: traZODone 50 MG Tablet PO (21:57)
[2020-06-12] MEDS: Acetaminophen 500 MG Tablet 1000 MG PO (22:01)
[2020-06-12] MEDS: oxyCODONE 5 MG Tablet PO (22:03)
[2020-06-13] MEDS: 0.9% Saline Lock 10 ML Syringe IV ×4 (01:05→17:23)
[2020-06-13 05:00] VITALS: BP 133/74; PULSE 60; RESP 16; TEMP 36.4; O2SAT 99
[2020-06-13] MEDS: Menthol/Lanolin/Calamine/Znox 113 GM Tube 1 APPLIC TOPICAL ×2 (06:10→17:23)
[2020-06-13] MEDS: Losartan Potassium 100 MG Tablet PO (06:11)
[2020-06-13] MEDS: hydroCHLOROthiazide 25 MG Tablet PO (06:11)
[2020-06-13] MEDS: Ascorbic Acid 500 MG Tablet 1000 MG PO (06:12)
[2020-06-13] MEDS: Senna Tablet 2 TABLET PO ×2 (06:12→17:22)
[2020-06-13] MEDS: Pantoprazole Sodium 20 MG Tablet PO (06:12)
[2020-06-13] MEDS: Nystatin Powder 15gm Bottle 1 APPLIC TOPICAL ×2 (06:12→17:23)
[2020-06-13] MEDS: Polyethylene Glycol 3350 17 GM PACKET PO ×2 (06:38→17:26)
[2020-06-13] MEDS: Aspirin E.C. 81 MG Tablet PO ×2 (08:33→17:22)
[2020-06-13] MEDS: Carvedilol 3.125 MG TABLET PO ×2 (08:33→17:22)
[2020-06-13] MEDS: Meloxicam 15 MG Tablet PO (08:33)
[2020-06-13] MEDS: Iron Polysaccharide Complex 150 MG CAPSULE PO (08:33)
[2020-06-13 08:36] VITALS: BP 102/61; PULSE 60
[2020-06-13 13:56] VITALS: BP 119/72; PULSE 65; RESP 16; TEMP 36.5; O2SAT 96
[2020-06-13] MEDS: BACITRACIN 15 GM Tube 1 APPLIC TOPICAL (14:18)
[2020-06-13] MEDS: traZODone 50 MG Tablet PO (21:51)
[2020-06-13] MEDS: Atorvastatin Calcium 80 MG Tablet PO (21:51)
[2020-06-13] MEDS: oxyCODONE 5 MG Tablet PO (21:55)
[2020-06-13] MEDS: Acetaminophen 500 MG Tablet 1000 MG PO (21:55)
[2020-06-14 04:07] VITALS: BP 117/63; PULSE 56; RESP 16; TEMP 36.3; O2SAT 100
[2020-06-14] MEDS: Losartan Potassium 100 MG Tablet PO (05:44)
[2020-06-14] MEDS: 0.9% Saline Lock 10 ML Syringe IV ×4 (05:45→23:02)
[2020-06-14] MEDS: Senna Tablet 2 TABLET PO ×2 (05:45→18:17)
[2020-06-14] MEDS: Pantoprazole Sodium 20 MG Tablet PO (05:45)
[2020-06-14] MEDS: hydroCHLOROthiazide 25 MG Tablet PO (05:45)
[2020-06-14] MEDS: Ascorbic Acid 500 MG Tablet 1000 MG PO (05:45)
[2020-06-14 05:46] LABS: Absolute Lymphocyte Count 1.28 X10^3/uL (0.83-4.51); Absolute Neutrophil Count 3.2 X10^3/uL (2.0-7.7); Basophil# 0.03 X10^3/uL; Basophil% 0.6 % (0-1); Eosinophil# 0.08 X10^3/uL; Eosinophils% 1.6 % (0-5); Hematocrit 32.1 % (40-54); Hemoglobin 9.9 g/dL (13.0-16.5); Lymphocyte # 1.28 X10^3/ul (4.0); Mean Corp Hgb Conc 30.8 g/dL (32-36); Mean Corpuscular Hgb 27.4 pg (27.0-32.0); Mean Corpuscular Volume 88.9 fL (80-94); Mean Platelet Vol. 8.9 fl (6.2-12.0); Monocyte# 0.49 X10^3/uL; Monocyte% 9.6 % (0-10); NRBC Flagged by Analyzer 0 % (0-5); Neutrophil # 3.22 X10^3/uL (2.7-7.7); Platelet Count 355 K/mm3 (150-450); RBC Distribution Width CV 15.3 % (11.6-14.6); RBC Distribution Width SD 50.4 fl (35.1-43.9); Red Blood Count 3.61 M/mm3 (4.6-6.2); White Blood Count 5.1 K/mm3 (4.4-11.0)
[2020-06-14] MEDS: Menthol/Lanolin/Calamine/Znox 113 GM Tube 1 APPLIC TOPICAL ×2 (05:47→18:17)
[2020-06-14] MEDS: Nystatin Powder 15gm Bottle 1 APPLIC TOPICAL ×2 (05:48→18:17)
[2020-06-14 06:02] LABS: Anion Gap 3 (5-15); BUN 7 mg/dL (7-18); BUN/Creat Ratio 10.3 RATIO (10-20); Calcium,Total 8.6 mg/dL (8.5-10.1); Chloride 101 mmol/L (98-107); Creatinine, Serum 0.68 mg/dL (0.70-1.30); EST Glomerular Filtration Rate 124 mL/min (>60); Est Glom Filt Rate - Afr Amer 150 mL/min (>60); Estimated Creatinine Clearance 129.44 ml/min; Glucose 91 mg/dL (74-106); Potassium 4.2 mmol/L (3.5-5.1); Sodium Level 135 mmol/L (136-145)
[2020-06-14] MEDS: Meloxicam 15 MG Tablet PO (08:57)
[2020-06-14] MEDS: Carvedilol 3.125 MG TABLET PO ×2 (08:57→18:16)
[2020-06-14] MEDS: Aspirin E.C. 81 MG Tablet PO ×2 (08:57→18:16)
[2020-06-14] MEDS: Iron Polysaccharide Complex 150 MG CAPSULE PO (08:57)
[2020-06-14] MEDS: BACITRACIN 15 GM Tube 1 APPLIC TOPICAL (14:44)
[2020-06-14] MEDS: Polyethylene Glycol 3350 17 GM PACKET PO (19:51)
[2020-06-14] MEDS: Acetaminophen 500 MG Tablet 1000 MG PO (21:35)
[2020-06-14] MEDS: oxyCODONE 5 MG Tablet PO (21:35)
[2020-06-14] MEDS: traZODone 50 MG Tablet PO (21:36)
[2020-06-14] MEDS: Atorvastatin Calcium 80 MG Tablet PO (21:36)
[2020-06-15 05:45] VITALS: BP 132/78; PULSE 65; RESP 17; TEMP 36.3; O2SAT 95
[2020-06-15] MEDS: 0.9% Saline Lock 10 ML Syringe IV ×7 (05:47→23:45)
[2020-06-15] MEDS: Ascorbic Acid 500 MG Tablet 1000 MG PO (05:50)
[2020-06-15] MEDS: Senna Tablet 2 TABLET PO ×2 (05:50→17:50)
[2020-06-15] MEDS: Menthol/Lanolin/Calamine/Znox 113 GM Tube 1 APPLIC TOPICAL ×2 (05:51→17:48)
[2020-06-15] MEDS: Pantoprazole Sodium 20 MG Tablet PO (05:51)
[2020-06-15] MEDS: Nystatin Powder 15gm Bottle 1 APPLIC TOPICAL ×2 (05:51→17:47)
[2020-06-15] MEDS: Losartan Potassium 100 MG Tablet PO (05:51)
[2020-06-15] MEDS: hydroCHLOROthiazide 25 MG Tablet PO (05:51)
[2020-06-15 09:18] VITALS: BP 119/71; PULSE 63
[2020-06-15] MEDS: Carvedilol 3.125 MG TABLET PO ×2 (09:19→17:50)
[2020-06-15] MEDS: Aspirin E.C. 81 MG Tablet PO ×2 (09:19→17:50)
[2020-06-15] MEDS: Meloxicam 15 MG Tablet PO (09:19)
[2020-06-15] MEDS: Iron Polysaccharide Complex 150 MG CAPSULE PO (09:19)
[2020-06-15 15:15] VITALS: BP 120/71; PULSE 66; RESP 16; TEMP 36.4; O2SAT 98
[2020-06-15] MEDS: Polyethylene Glycol 3350 17 GM PACKET PO (18:20)
[2020-06-15] MEDS: BACITRACIN 15 GM Tube 1 APPLIC TOPICAL (18:21)
[2020-06-15] MEDS: oxyCODONE 5 MG Tablet PO (21:34)
[2020-06-15] MEDS: Acetaminophen 500 MG Tablet 1000 MG PO (21:34)
[2020-06-15] MEDS: traZODone 50 MG Tablet PO (21:35)
[2020-06-15] MEDS: Atorvastatin Calcium 80 MG Tablet PO (21:35)
[2020-06-16] MEDS: 0.9% Saline Lock 10 ML Syringe IV ×4 (05:28→23:53)
[2020-06-16] MEDS: Pantoprazole Sodium 20 MG Tablet PO (05:29)
[2020-06-16] MEDS: Ascorbic Acid 500 MG Tablet 1000 MG PO (05:29)
[2020-06-16] MEDS: Polyethylene Glycol 3350 17 GM PACKET PO ×2 (05:29→17:54)
[2020-06-16] MEDS: Losartan Potassium 100 MG Tablet PO (05:29)
[2020-06-16] MEDS: hydroCHLOROthiazide 25 MG Tablet PO (05:29)
[2020-06-16] MEDS: Senna Tablet 2 TABLET PO ×2 (05:29→17:50)
[2020-06-16] MEDS: Nystatin Powder 15gm Bottle 1 APPLIC TOPICAL ×2 (05:33→21:43)
[2020-06-16] MEDS: Menthol/Lanolin/Calamine/Znox 113 GM Tube 1 APPLIC TOPICAL ×2 (05:34→17:50)
[2020-06-16 05:36] VITALS: BP 121/69; PULSE 58; RESP 17; TEMP 36.2; O2SAT 96
[2020-06-16] MEDS: Aspirin E.C. 81 MG Tablet PO ×2 (08:40→17:50)
[2020-06-16] MEDS: Iron Polysaccharide Complex 150 MG CAPSULE PO (08:40)
[2020-06-16] MEDS: Meloxicam 15 MG Tablet PO (08:41)
[2020-06-16] MEDS: Carvedilol 3.125 MG TABLET PO ×2 (08:41→17:50)
[2020-06-16] MEDS: BACITRACIN 15 GM Tube 1 APPLIC TOPICAL (12:39)
[2020-06-16 13:53] VITALS: BP 101/61; PULSE 63; RESP 16; TEMP 36.6; O2SAT 97
[2020-06-16] MEDS: Acetaminophen 500 MG Tablet 1000 MG PO (21:40)
[2020-06-16] MEDS: traZODone 50 MG Tablet PO (21:40)
[2020-06-16] MEDS: Atorvastatin Calcium 80 MG Tablet PO (21:40)
[2020-06-16] MEDS: oxyCODONE 5 MG Tablet PO (21:41)
[2020-06-17 05:00] VITALS: BP 119/70; PULSE 53; RESP 15; TEMP 36.7; O2SAT 96
[2020-06-17] MEDS: Pantoprazole Sodium 20 MG Tablet PO (06:01)
[2020-06-17] MEDS: Ascorbic Acid 500 MG Tablet 1000 MG PO (06:01)
[2020-06-17] MEDS: hydroCHLOROthiazide 25 MG Tablet PO (06:01)
[2020-06-17] MEDS: Losartan Potassium 100 MG Tablet PO (06:01)
[2020-06-17] MEDS: Senna Tablet 2 TABLET PO ×2 (06:02→18:11)
[2020-06-17] MEDS: Polyethylene Glycol 3350 17 GM PACKET PO ×2 (06:09→18:17)
[2020-06-17] MEDS: Menthol/Lanolin/Calamine/Znox 113 GM Tube 1 APPLIC TOPICAL ×2 (06:09→18:10)
[2020-06-17] MEDS: Nystatin Powder 15gm Bottle 1 APPLIC TOPICAL ×2 (06:13→18:11)
[2020-06-17] MEDS: Iron Polysaccharide Complex 150 MG CAPSULE PO (09:33)
[2020-06-17] MEDS: Aspirin E.C. 81 MG Tablet PO ×2 (09:33→18:10)
[2020-06-17] MEDS: Carvedilol 3.125 MG TABLET PO ×2 (09:33→18:10)
[2020-06-17] MEDS: BACITRACIN 15 GM Tube 1 APPLIC TOPICAL (09:34)
[2020-06-17] MEDS: Meloxicam 15 MG Tablet PO (09:34)
[2020-06-17 10:00] VITALS: PULSE 65; RESP 16; O2SAT 99
[2020-06-17] MEDS: 0.9% Saline Lock 10 ML Syringe IV (12:14)
[2020-06-17 14:12] VITALS: BP 100/59; PULSE 60; RESP 18; TEMP 36; O2SAT 96
[2020-06-17] MEDS: oxyCODONE 5 MG Tablet PO (22:25)
[2020-06-17] MEDS: Atorvastatin Calcium 80 MG Tablet PO (22:26)
[2020-06-17] MEDS: traZODone 50 MG Tablet PO (22:27)
[2020-06-17] MEDS: Acetaminophen 500 MG Tablet 1000 MG PO (22:31)
[2020-06-18] MEDS: 0.9% Saline Lock 10 ML Syringe IV ×3 (00:12→18:27)
[2020-06-18 05:00] VITALS: BP 154/88; PULSE 55; RESP 18; TEMP 36.8; O2SAT 96
[2020-06-18] MEDS: Polyethylene Glycol 3350 17 GM PACKET PO ×2 (07:02→18:28)
[2020-06-18] MEDS: Pantoprazole Sodium 20 MG Tablet PO (07:03)
[2020-06-18] MEDS: hydroCHLOROthiazide 25 MG Tablet PO (07:03)
[2020-06-18] MEDS: Ascorbic Acid 500 MG Tablet 1000 MG PO (07:03)
[2020-06-18] MEDS: Senna Tablet 2 TABLET PO ×2 (07:03→18:28)
[2020-06-18] MEDS: Losartan Potassium 100 MG Tablet PO (07:03)
[2020-06-18] MEDS: Menthol/Lanolin/Calamine/Znox 113 GM Tube 1 APPLIC TOPICAL ×2 (07:05→18:25)
[2020-06-18] MEDS: Nystatin Powder 15gm Bottle 1 APPLIC TOPICAL ×2 (07:05→18:27)
[2020-06-18] MEDS: Carvedilol 3.125 MG TABLET PO ×2 (07:57→18:26)
[2020-06-18] MEDS: Iron Polysaccharide Complex 150 MG CAPSULE PO (07:58)
[2020-06-18] MEDS: Meloxicam 15 MG Tablet PO (07:58)
[2020-06-18] MEDS: Aspirin E.C. 81 MG Tablet PO ×2 (07:58→18:26)
[2020-06-18] MEDS: BACITRACIN 15 GM Tube 1 APPLIC TOPICAL (11:36)
[2020-06-18 15:34] VITALS: BP 103/59; PULSE 60; RESP 18; TEMP 36.2; O2SAT 96
[2020-06-18] MEDS: traZODone 50 MG Tablet PO (22:22)
[2020-06-18] MEDS: Atorvastatin Calcium 80 MG Tablet PO (22:22)
[2020-06-18] MEDS: Acetaminophen 500 MG Tablet 1000 MG PO (22:23)
[2020-06-18] MEDS: oxyCODONE 5 MG Tablet PO (22:23)
[2020-06-19 06:18] VITALS: BP 125/71; PULSE 53; RESP 16; TEMP 36.6; O2SAT 96
[2020-06-19] MEDS: Losartan Potassium 100 MG Tablet PO (06:20)
[2020-06-19] MEDS: Pantoprazole Sodium 20 MG Tablet PO (06:20)
[2020-06-19] MEDS: Ascorbic Acid 500 MG Tablet 1000 MG PO (06:20)
[2020-06-19] MEDS: Senna Tablet 2 TABLET PO ×2 (06:20→18:11)
[2020-06-19] MEDS: hydroCHLOROthiazide 25 MG Tablet PO (06:20)
[2020-06-19] MEDS: Menthol/Lanolin/Calamine/Znox 113 GM Tube 1 APPLIC TOPICAL ×2 (06:21→18:12)
[2020-06-19] MEDS: Nystatin Powder 15gm Bottle 1 APPLIC TOPICAL ×2 (06:21→18:12)
[2020-06-19] MEDS: Polyethylene Glycol 3350 17 GM PACKET PO ×2 (08:37→18:11)
[2020-06-19] MEDS: Meloxicam 15 MG Tablet PO (08:38)
[2020-06-19] MEDS: Aspirin E.C. 81 MG Tablet PO ×2 (08:38→18:11)
[2020-06-19] MEDS: Iron Polysaccharide Complex 150 MG CAPSULE PO (08:38)
[2020-06-19] MEDS: Carvedilol 3.125 MG TABLET PO ×2 (09:59→18:11)
[2020-06-19] MEDS: BACITRACIN 15 GM Tube 1 APPLIC TOPICAL (13:35)
--- NOTE | 2020-06-19 13:57 | NURSING ---
wound photo: left knee
[2020-06-19 14:03] VITALS: BP 109/64; PULSE 64; RESP 16; TEMP 36.3; O2SAT 95
[2020-06-19 14:23] VITALS: PULSE 77; RESP 16
[2020-06-19] MEDS: 0.9% Saline Lock 10 ML Syringe IV (18:12)
[2020-06-19] MEDS: traZODone 50 MG Tablet PO (22:07)
[2020-06-19] MEDS: Atorvastatin Calcium 80 MG Tablet PO (22:07)
[2020-06-19] MEDS: Acetaminophen 500 MG Tablet 1000 MG PO (22:09)
[2020-06-19] MEDS: oxyCODONE 5 MG Tablet PO (22:10)
[2020-06-20] MEDS: 0.9% Saline Lock 10 ML Syringe IV ×5 (00:03→23:33)
[2020-06-20 05:00] VITALS: BP 140/79; PULSE 59; RESP 16; TEMP 36.6; O2SAT 97
[2020-06-20] MEDS: hydroCHLOROthiazide 25 MG Tablet PO (05:47)
[2020-06-20] MEDS: Losartan Potassium 100 MG Tablet PO (05:47)
[2020-06-20] MEDS: Polyethylene Glycol 3350 17 GM PACKET PO ×2 (05:48→17:08)
[2020-06-20] MEDS: Senna Tablet 2 TABLET PO ×2 (05:48→17:08)
[2020-06-20] MEDS: Pantoprazole Sodium 20 MG Tablet PO (05:48)
[2020-06-20] MEDS: Ascorbic Acid 500 MG Tablet 1000 MG PO (05:49)
[2020-06-20] MEDS: Menthol/Lanolin/Calamine/Znox 113 GM Tube 1 APPLIC TOPICAL ×2 (05:58→17:08)
[2020-06-20] MEDS: Nystatin Powder 15gm Bottle 1 APPLIC TOPICAL ×2 (05:58→21:51)
[2020-06-20] MEDS: Iron Polysaccharide Complex 150 MG CAPSULE PO (09:05)
[2020-06-20] MEDS: Carvedilol 3.125 MG TABLET PO ×2 (09:05→17:08)
[2020-06-20] MEDS: Aspirin E.C. 81 MG Tablet PO ×2 (09:05→17:08)
[2020-06-20] MEDS: Meloxicam 15 MG Tablet PO (09:05)
[2020-06-20 09:07] VITALS: BP 108/67; PULSE 60
[2020-06-20 13:45] VITALS: BP 110/65; PULSE 75; RESP 16; TEMP 36.3; O2SAT 97
[2020-06-20] MEDS: BACITRACIN 15 GM Tube 1 APPLIC TOPICAL (17:08)
[2020-06-20] MEDS: Acetaminophen 500 MG Tablet 1000 MG PO (21:48)
[2020-06-20] MEDS: Atorvastatin Calcium 80 MG Tablet PO (21:49)
[2020-06-20] MEDS: traZODone 50 MG Tablet PO (21:49)
[2020-06-20] MEDS: oxyCODONE 5 MG Tablet PO (23:40)
[2020-06-21] MEDS: Pantoprazole Sodium 20 MG Tablet PO (05:32)
[2020-06-21] MEDS: hydroCHLOROthiazide 25 MG Tablet PO (05:32)
[2020-06-21] MEDS: Senna Tablet 2 TABLET PO ×2 (05:32→17:18)
[2020-06-21] MEDS: Losartan Potassium 100 MG Tablet PO (05:32)
[2020-06-21] MEDS: Polyethylene Glycol 3350 17 GM PACKET PO ×2 (05:32→17:18)
[2020-06-21] MEDS: Ascorbic Acid 500 MG Tablet 1000 MG PO (05:32)
[2020-06-21] MEDS: 0.9% Saline Lock 10 ML Syringe IV ×5 (05:36→23:44)
[2020-06-21 05:39] VITALS: BP 138/77; PULSE 64; RESP 16; TEMP 36.6; O2SAT 97
[2020-06-21] MEDS: Menthol/Lanolin/Calamine/Znox 113 GM Tube 1 APPLIC TOPICAL ×2 (06:35→17:23)
[2020-06-21] MEDS: Nystatin Powder 15gm Bottle 1 APPLIC TOPICAL ×2 (06:36→17:23)
[2020-06-21] MEDS: Iron Polysaccharide Complex 150 MG CAPSULE PO (08:57)
[2020-06-21] MEDS: Aspirin E.C. 81 MG Tablet PO ×2 (08:57→17:18)
[2020-06-21] MEDS: Meloxicam 15 MG Tablet PO (08:57)
[2020-06-21] MEDS: Carvedilol 3.125 MG TABLET PO ×2 (08:57→17:18)
[2020-06-21 10:00] VITALS: PULSE 58; RESP 16; O2SAT 98
[2020-06-21] MEDS: BACITRACIN 15 GM Tube 1 APPLIC TOPICAL (11:23)
[2020-06-21 14:09] VITALS: BP 103/62; PULSE 68; RESP 18; TEMP 36.3; O2SAT 96
[2020-06-21] MEDS: Acetaminophen 500 MG Tablet 1000 MG PO (21:35)
[2020-06-21] MEDS: traZODone 50 MG Tablet PO (21:36)
[2020-06-21] MEDS: Atorvastatin Calcium 80 MG Tablet PO (21:36)
[2020-06-21] MEDS: oxyCODONE 5 MG Tablet PO (21:36)
[2020-06-22 05:00] VITALS: BP 131/76; PULSE 54; RESP 18; TEMP 36.3; O2SAT 96
[2020-06-22] MEDS: Polyethylene Glycol 3350 17 GM PACKET PO ×2 (05:52→17:00)
[2020-06-22] MEDS: Ascorbic Acid 500 MG Tablet 1000 MG PO (05:52)
[2020-06-22] MEDS: Losartan Potassium 100 MG Tablet PO (05:52)
[2020-06-22] MEDS: Pantoprazole Sodium 20 MG Tablet PO (05:52)
[2020-06-22] MEDS: Senna Tablet 2 TABLET PO ×2 (05:52→17:00)
[2020-06-22] MEDS: Menthol/Lanolin/Calamine/Znox 113 GM Tube 1 APPLIC TOPICAL ×2 (05:52→16:58)
[2020-06-22] MEDS: hydroCHLOROthiazide 25 MG Tablet PO (05:52)
[2020-06-22] MEDS: Nystatin Powder 15gm Bottle 1 APPLIC TOPICAL ×2 (05:53→16:59)
[2020-06-22] MEDS: Iron Polysaccharide Complex 150 MG CAPSULE PO (08:20)
[2020-06-22] MEDS: Carvedilol 3.125 MG TABLET PO ×2 (08:20→17:00)
[2020-06-22] MEDS: Meloxicam 15 MG Tablet PO (08:20)
[2020-06-22] MEDS: Aspirin E.C. 81 MG Tablet PO ×2 (08:20→17:00)
[2020-06-22 08:22] VITALS: BP 126/76; PULSE 60
[2020-06-22] MEDS: 0.9% Saline Lock 10 ML Syringe IV ×2 (12:13→17:05)
[2020-06-22 14:05] VITALS: BP 104/69; PULSE 61; RESP 14; TEMP 36.2; O2SAT 100
--- NOTE | 2020-06-22 14:28 | CASEMGMT ---
Social Work Spoke with pt about DC plans and pt is agreeable to DC 06/28. Provided [facility] list of providers including quality and resource use data and consistent with the patient?s preferred geographic region, medical needs, and insurance network. Pt has no preference and agreeable to [facility]. Referral made for PT/OT/SN. No DME needed. Plan: DC home with 06/28 with [facility] PT/OT/SN RA PalenciaW
[2020-06-22] MEDS: BACITRACIN 15 GM Tube 1 APPLIC TOPICAL (16:09)
--- NOTE | 2020-06-22 16:10 | NURSING ---
Changed dressing this shift per order. No drainage noted pt tolerated well. Call light within reach.
[2020-06-22 16:56] VITALS: BP 120/77; PULSE 64
--- NOTE | 2020-06-22 19:48 | PCM.DC ---
- Discharge Diagnoses Current Active Problems: Current Active and Chronic Problems (Last Reviewed 05/31/20 @ 10:49 by Joselyn Salter) Debility (Acute) Infection of prosthetic left knee joint (Acute) Stroke (Chronic) Hypertension (Chronic) Hyperlipidemia (Chronic) Transient ischemic attack (Chronic) You will use the following diet at home:: No restrictions, Regular Your food should be the consistency of: Regular Your liquids should be the consistency of: Regular/Thin Discharge Activity: Return to Normal Activity, May Shower, Use Walker Weight Bearing Status: No weight bearing - Left lower extremity. Call your doctor if you observe: Fever of 101 or Higher, Inability to urinate, Inability to have a bowel movement, Shortness of breath, Chest pain, Uncontrolled pain Allergies/Adverse Reactions: Allergies soap [From Betadine] Adverse Reaction (Intermediate, Verified 05/24/20 15:22) Rash sulfamethoxazole [From Bactrim] Adverse Reaction (Intermediate, Verified 05/24/20 15:22) Rash trimethoprim [From Bactrim] Adverse Reaction (Intermediate, Verified 05/24/20 15:22) Rash povidone-iodine [From Betadine] Adverse Reaction (Mild, Verified 05/24/20 15:22) Rash Medications to take at Discharge Ascorbic Acid [Vitamin C] 1,000 mg PO DAILY 05/09/20 Aspirin E.C. [Ecotrin] 81 mg PO BID 05/09/20 Carvedilol [Coreg] 3.125 mg PO BID 05/09/20 Esomeprazole Mag Trihydrate [Nexium] 20 mg PO 0600 05/09/20 Hydrochlorothiazide [Hctz] 25 mg PO DAILY 05/09/20 Losartan Potassium [Cozaar] 100 mg PO DAILY 05/09/20 Meloxicam [Mobic] 15 mg PO DAILY 05/09/20 Rosuvastatin Calcium [Crestor] 20 mg PO QHS 05/09/20 Sildenafil Citrate [Viagra] 50 mg PO DAILY 05/09/20 traZODone [Desyrel] 1 tab PO QHS 05/09/20 Acetaminophen [Tylenol] 1,000 mg PO Q6H PRN PRN tablet 06/22/20 Bacitracin Ointment 1 applic TOPICAL DAILY@1000 #1 tube 06/22/20 Iron Polysaccharide Complex [Ferrex 150] 150 mg PO DAILYCM #30 capsule 06/22/20 Menthol/Lanolin/Calamine/Znox [Calmoseptine Ointment] 1 applic TOPICAL BID tube 06/22/20 Nystatin Powder [Mycostatin Powder] 1 applic TOPICAL BID bottle 06/22/20 Oxycodone [Oxyir] 5 mg PO Q4H PRN PRN 7 Days #42 tablet 06/22/20 Polyethylene Glycol 3350 [Miralax] 17 gm PO BID #60 packet 06/22/20 Senna [Senokot] 2 tablet PO BID #120 tablet 06/22/20 The following prescriptions were given: Bacitracin Ointment 1 applic TOPICAL DAILY@1000 #1 tube Transmission Status: Pending to [facility] Iron Polysaccharide Complex [Ferrex 150] 150 mg PO DAILYCM #30 capsule Transmission Status: Pending to [facility] Polyethylene Glycol 3350 [Miralax] 17 gm PO BID #60 packet Transmission Status: Pending to [facility] [facility] Oxycodone [Oxyir] 5 mg PO Q4H PRN PRN 7 Days #42 tablet PRN Reason: Pain Score 4-10 Transmission Status: [facility] Senna [Senokot] 2 tablet PO BID #120 tablet Transmission Status: [facility] [facility] Primary Care Physician: Gaurav Jennings MD [Primary Care Provider] - Please follow up with your Primary Care Physician in: 1 week. Test Results: Test results from this visit will be discussed in further detail at your follow-up appointment, if applicable. Please Follow Up With: [facility]iology ([facility]) ([facility]) Please Follow Up With: Chacho LERNER) Deann (Orthopedics) Please Follow Up With: Sonam Velasquez (Infectious Disease) Main- [facility] When: appt cancelled. labs to be faxed Please Follow Up With: (plastic Surgery) Please Follow Up With: Elizabet Estrella MD Please Follow Up With: Elizabet Estrella MD When: Proposed Discharge Date: 06/28/20
--- NOTE | 2020-06-22 19:50 | PCM.DC.SUM ---
Discharge Date and Diagnosis - Problem List Patient Problems: Active and Suspected Problems (Last Reviewed 05/31/20 @ 10:49 by Joselyn Salter) Debility (Acute) Infection of prosthetic left knee joint (Acute) Date of Admission: 05/09/20 Date of Discharge: 06/28/20 - Primary Discharge Diagnosis Acute Problems: Active Problems (Last Reviewed 05/31/20 @ 10:49 by Joselyn Salter) Debility (Acute) Infection of prosthetic left knee joint (Acute) - Secondary Discharge Diagnosis Chronic Problems: Chronic Problems (Last Reviewed 05/31/20 @ 10:49 by Joselyn Salter) Stroke (Chronic) Hypertension (Chronic) Hyperlipidemia (Chronic) Transient ischemic attack (Chronic) Hospital Course and Treatment Imaging Results: 05/10/20 12:23 Diet: Cardiac - Heart Healthy Food consistency:: Regular Liquid Consistency:: Regular/Thin Is pt able to select menu?: Yes Diet Comments: blue gatorade with all meals Clinical Impression(s) from Imaging Studies KUB X-Ray 05/10/20 07:56 IMPRESSION: Large amount of fecal material is seen in the rectum with some mild dilatation of the colon. Electronically Signed: Luis Carlos Crocker MD at 11:18 EST , Service support , Consultations 05/09/20 15:28 Consult: Onc/Wound/middleware solutions architect Routine Comment: Left knee and thigh Operations: None Procedures: None Summary of Care Provided: The patient is a 64 year old Male with below past medical history hospitalized for left prosthetic knee joint infection, underwent left total knee explant, antibiotic spacer placement, skin graft, admitted to TCU with debility, here for rehabilitation, strengthening, prior to discharge home with . Discharge home with , [facility] PT/OT/SN. Patient Problems: Active and Suspected Problems (Last Reviewed 05/31/20 @ 10:49 by Joselyn Salter) Debility (Acute) Infection of prosthetic left knee joint (Acute) - Physical Exam Vitals/I&O's: Vital Signs Temp Pulse Resp BP Pulse Ox 97.1 F L 64 14 120/77 100 06/22/20 14:05 06/22/20 16:56 06/22/20 14:05 06/22/20 16:56 06/22/20 14:05 Oxygen Delivery Method Room Air Weight: 89.448 kg Body Mass Index (BMI) 25.9 Intake and Output for Last 24 Hours 06/20/20 06/21/20 06/22/20 23:59 23:59 23:59 Intake Total 1533.00 / 1533.00 1360.75 / 1360.75 1120 / 1120 Output Total 650 / 650 Balance 1533.00 / 1533.00 1360.75 / 1360.75 470 / 470 Current Medications Acetaminophen (Acetaminophen 500 Mg Tablet) 1,000 mg PO Q6H PRN PRN PRN Reason: Pain Score 1-3 Last Admin: 06/21/20 21:35 Dose: 1,000 mg Documented by: Ascorbic Acid (Ascorbic Acid 500 Mg Tablet) 1,000 mg PO DAILY [facility] Last Admin: 06/22/20 05:52 Dose: 1,000 mg Documented by: Aspirin (Aspirin E.C. 81 Mg Tablet) [facility] Admin: 06/22/20 17:00 Dose: 81 mg Documented by: Atorvastatin Calcium (Atorvastatin Calcium 80 Mg Tablet) 80 mg PO QHS [facility] Last Admin: 06/21/20 21:36 Dose: 80 mg Documented by: Bacitracin (Bacitracin 15 Gm Tube) 1 applic TOPICAL DAILY@1000 [facility]; Protocol Last Admin: 06/22/20 16:09 Dose: 1 applicatio Documented by: Bisacodyl (Bisacodyl 10 Mg Suppository) 10 mg RC DAILY PRN PRN Reason: Constipation Last Admin: 05/16/20 14:26 Dose: 10 mg Documented by: Calamine/Phenol (Menthol/Lanolin/Calamine/Znox 113 Gm Tube) 1 applic TOPICAL BID [facility]; Protocol Last Admin: 06/22/20 16:58 Dose: 1 applicatio Documented by: Carvedilol (Carvedilol 3.125 Mg Tablet) [facility] Last Admin: 06/22/20 17:00 Dose: 3.125 mg Documented by: Heparin Sodium (Beef Lung) (Heparin Pf Lock 10 Units/Ml 50 Units/5 Ml Syringe) 50 units IV UD PRN PRN Reason: PICC Line Heparin Flush Hydrochlorothiazide (Hydrochlorothiazide 25 Mg Tablet) 25 mg PO DAILY [facility] Last Admin: 06/22/20 05:52 Dose: 25 mg Documented by: Ampicillin Sodium 2 gm/ Sodium (Chloride) 100 mls @ 200 mls/hr IV Q6 [facility] Stop: 06/26/20 23:59 Last Admin: 06/22/20 17:06 Dose: 200 mls/hr Documented by: Sodium Chloride () 250 mls @ 15 mls/hr IV .[id number] PRN PRN Reason: Additional IVPB Infusion Last Infusion: 06/21/20 05:41 Dose: 0 mls/hr Documented by: Losartan Potassium (Losartan Potassium 100 Mg Tablet) 100 mg PO DAILY [facility] Last Admin: 06/22/20 05:52 Dose: 100 mg Documented by: Meloxicam (Meloxicam 15 Mg Tablet) [facility] Last Admin: 06/22/20 08:20 Dose: 15 mg Documented by: Nystatin (Nystatin Powder 15gm Bottle) 1 applic TOPICAL BID [facility]; Protocol Last Admin: 06/22/20 16:59 Dose: 1 applicatio Documented by: Ondansetron HCl (Ondansetron Odt 4 Mg Tablet) 4 mg PO Q8H PRN PRN PRN Reason: NAUSEA/VOMITING Oxycodone HCl (Oxycodone 5 Mg Tablet) 5 mg PO Q4H PRN PRN PRN Reason: Pain Score 4-10 Last Admin: 06/21/20 21:36 Dose: 5 mg Documented by: Pantoprazole Sodium (Pantoprazole Sodium 20 Mg Tablet) 20 mg PO DAILY [facility] Last Admin: 06/22/20 05:52 Dose: 20 mg Documented by: Polyethylene Glycol (Polyethylene Glycol 3350 17 Gm Packet) 17 gm PO BID [facility] Last Admin: 06/22/20 17:00 Dose: 17 gm Documented by: Polysaccharide Iron Complex (Iron Polysaccharide Complex 150 Mg Capsule) [facility] Last Admin: 06/22/20 08:20 Dose: 150 mg Documented by: Senna (Senna Tablet) 2 tablet PO BID [facility] Last Admin: 06/22/20 17:00 Dose: 2 tablet Documented by: Sodium Chloride (0.9% Saline Lock 10 Ml Syringe) 10 - 40 ml IV UD PRN PRN Reason: Open End PICC Flush Last Admin: 06/22/20 17:05 Dose: 20 ml Documented by: Sodium Chloride (0.9 % Nacl (Sterile) Posiflush 10 Ml) 10 - 40 ml IV UD PRN PRN Reason: Port access or dressing change Last Admin: 05/23/20 00:34 Dose: 20 ml Documented by: Trazodone HCl (Trazodone 50 Mg Tablet) 50 mg PO QHS [facility] Last Admin: 06/21/20 21:36 Dose: 50 mg Documented by: Discharge Diet: No Restrictions Discharge Activity: Return to Normal Activity, May Shower, Use Walker Weight Bearing Status: No weight bearing - Left lower extremity. Call your doctor if you observe: Fever of 101 or Higher, Inability to urinate, Inability to have a bowel movement, Shortness of breath, Chest pain, Uncontrolled pain Home Medications: Medications to take at Discharge Ascorbic Acid [Vitamin C] 1,000 mg PO DAILY 05/09/20 Aspirin E.C. [Ecotrin] 81 mg PO BID 05/09/20 Carvedilol [Coreg] 3.125 mg PO BID 05/09/20 Esomeprazole Mag Trihydrate [Nexium] 20 mg PO 0600 05/09/20 Hydrochlorothiazide [Hctz] 25 mg PO DAILY 05/09/20 Losartan Potassium [Cozaar] 100 mg PO DAILY 05/09/20 Meloxicam [Mobic] 15 mg PO DAILY 05/09/20 Rosuvastatin Calcium [Crestor] 20 mg PO QHS 05/09/20 Sildenafil Citrate [Viagra] 50 mg PO DAILY 05/09/20 traZODone [Desyrel] 1 tab PO QHS 05/09/20 Acetaminophen [Tylenol] 1,000 mg PO Q6H PRN PRN tablet 06/22/20 Bacitracin Ointment 1 applic TOPICAL DAILY@1000 #1 tube 06/22/20 Iron Polysaccharide Complex [Ferrex 150] 150 mg PO DAILYCM #30 capsule 06/22/20 Menthol/Lanolin/Calamine/Znox [Calmoseptine Ointment] 1 applic TOPICAL BID tube 06/22/20 Nystatin Powder [Mycostatin Powder] 1 applic TOPICAL BID bottle 06/22/20 Oxycodone [Oxyir] 5 mg PO Q4H PRN PRN 7 Days #42 tablet 06/22/20 Polyethylene Glycol 3350 [Miralax] 17 gm PO BID #60 packet 03/25/21 Senna [Senokot] 2 tablet PO BID #120 tablet 06/22/20 Following Prescriptions Were Given to Patient: Bacitracin Ointment 1 applic TOPICAL DAILY@1000 #1 tube Transmission Status: Pending to [facility] [place] [address] Iron Polysaccharide Complex [Ferrex 150] 150 mg PO DAILYCM #30 capsule Transmission Status: Pending to [facility] [place] [address] Polyethylene Glycol 3350 [Miralax] 17 gm PO BID #60 packet Transmission Status: Pending to [facility]-[address] [place] [address] Oxycodone [Oxyir] 5 mg PO Q4H PRN PRN 7 Days #42 tablet PRN Reason: Pain Score 4-10 Transmission Status: Received by [address] Senna [Senokot] 2 tablet PO BID #120 tablet Transmission Status: Pending to [place] [address] [address] [facility] Primary Care Physician: Gaurav Jennings MD [Primary Care Provider] - Please follow up with your Primary Care Physician in: 1 week. Please Follow Up With: X-Ray Ortho Radiology ([facility]) ([facility]) Please Follow Up With: Chacho SalgadoPA) Deann (Orthopedics) Please Follow Up With: Sonam Velasquez (Infectious Disease) Main- [facility] When: appt cancelled. labs to be faxed Please Follow Up With: (plastic Surgery) Please Follow Up With: Elizabet Estrella MD Please Follow Up With: Elizabet Estrella MD When: Disposition: Home with Home Health Minutes spent on discharge:: 35 Patient Condition:: Stable Medical Necessity - Tobacco Use Smoking Status: Never smoker Tobacco Use: Non-smoker Meaningful Use Info Meaningful Use Diagnoses (Choose all that apply): None applicable
[2020-06-22] MEDS: Acetaminophen 500 MG Tablet 1000 MG PO (21:24)
[2020-06-22] MEDS: traZODone 50 MG Tablet PO (21:25)
[2020-06-22] MEDS: Atorvastatin Calcium 80 MG Tablet PO (21:25)
[2020-06-22] MEDS: oxyCODONE 5 MG Tablet PO (21:27)
[2020-06-22 22:00] VITALS: RESP 16
[2020-06-23] MEDS: 0.9% Saline Lock 10 ML Syringe IV ×4 (00:03→23:50)
[2020-06-23 05:00] VITALS: BP 138/72; PULSE 53; RESP 15; TEMP 36.6; O2SAT 15
[2020-06-23] MEDS: hydroCHLOROthiazide 25 MG Tablet PO (05:43)
[2020-06-23] MEDS: Losartan Potassium 100 MG Tablet PO (05:43)
[2020-06-23] MEDS: Polyethylene Glycol 3350 17 GM PACKET PO ×2 (05:43→17:46)
[2020-06-23] MEDS: Ascorbic Acid 500 MG Tablet 1000 MG PO (05:44)
[2020-06-23] MEDS: Senna Tablet 2 TABLET PO ×2 (05:44→17:46)
[2020-06-23] MEDS: Pantoprazole Sodium 20 MG Tablet PO (05:44)
[2020-06-23] MEDS: Nystatin Powder 15gm Bottle 1 APPLIC TOPICAL ×2 (05:47→17:46)
[2020-06-23] MEDS: Menthol/Lanolin/Calamine/Znox 113 GM Tube 1 APPLIC TOPICAL ×2 (05:47→17:46)
[2020-06-23] MEDS: Aspirin E.C. 81 MG Tablet PO ×2 (09:08→17:46)
[2020-06-23] MEDS: Carvedilol 3.125 MG TABLET PO ×2 (09:08→17:46)
[2020-06-23] MEDS: Iron Polysaccharide Complex 150 MG CAPSULE PO (09:08)
[2020-06-23] MEDS: Meloxicam 15 MG Tablet PO (09:08)
[2020-06-23 10:00] VITALS: PULSE 74; RESP 18; O2SAT 96
[2020-06-23] MEDS: BACITRACIN 15 GM Tube 1 APPLIC TOPICAL (12:29)
[2020-06-23 14:17] VITALS: BP 104/63; PULSE 59; RESP 16; TEMP 36.4; O2SAT 97
[2020-06-23] MEDS: Atorvastatin Calcium 80 MG Tablet PO (21:40)
[2020-06-23] MEDS: traZODone 50 MG Tablet PO (21:40)
[2020-06-23] MEDS: oxyCODONE 5 MG Tablet PO (21:44)
[2020-06-23] MEDS: Acetaminophen 500 MG Tablet 1000 MG PO (21:44)
[2020-06-24] MEDS: Menthol/Lanolin/Calamine/Znox 113 GM Tube 1 APPLIC TOPICAL ×2 (05:52→17:01)
[2020-06-24] MEDS: Nystatin Powder 15gm Bottle 1 APPLIC TOPICAL ×2 (05:53→17:01)
[2020-06-24 05:54] VITALS: BP 131/74; PULSE 58; RESP 14; TEMP 36.4; O2SAT 95
[2020-06-24] MEDS: Polyethylene Glycol 3350 17 GM PACKET PO ×2 (05:55→16:59)
[2020-06-24] MEDS: Pantoprazole Sodium 20 MG Tablet PO (05:57)
[2020-06-24] MEDS: Losartan Potassium 100 MG Tablet PO (05:57)
[2020-06-24] MEDS: hydroCHLOROthiazide 25 MG Tablet PO (05:57)
[2020-06-24] MEDS: Senna Tablet 2 TABLET PO ×2 (05:57→17:01)
[2020-06-24] MEDS: Ascorbic Acid 500 MG Tablet 1000 MG PO (05:58)
[2020-06-24 06:20] LABS: Absolute Lymphocyte Count 1.48 X10^3/uL (0.83-4.51); Basophil# 0.04 X10^3/uL; Basophil% 0.8 % (0-1); Eosinophil# 0.09 X10^3/uL; Eosinophils% 1.8 % (0-5); Hematocrit 33.4 % (40-54); Hemoglobin 10.5 g/dL (13.0-16.5); Lymphocyte # 1.48 X10^3/ul (4.0); Lymphocyte % 28.9 % (19-41); Mean Corp Hgb Conc 31.4 g/dL (32-36); Mean Corpuscular Hgb 27.7 pg (27.0-32.0); Mean Corpuscular Volume 88.1 fL (80-94); Mean Platelet Vol. 8.3 fl (6.2-12.0); Monocyte# 0.49 X10^3/uL; Monocyte% 9.6 % (0-10); NRBC Flagged by Analyzer 0 % (0-5); Neutrophil # 3.01 X10^3/uL (2.7-7.7); Neutrophil % 58.7 % (47-70); Platelet Count 292 K/mm3 (150-450); RBC Distribution Width CV 16.1 % (11.6-14.6); RBC Distribution Width SD 52.3 fl (35.1-43.9); Red Blood Count 3.79 M/mm3 (4.6-6.2); White Blood Count 5.1 K/mm3 (4.4-11.0)
[2020-06-24 06:39] LABS: Anion Gap 5 (5-15); BUN 6 mg/dL (7-18); BUN/Creat Ratio 8.4 RATIO (10-20); Calcium,Total 8.5 mg/dL (8.5-10.1); Chloride 100 mmol/L (98-107); Creatinine, Serum 0.71 mg/dL (0.70-1.30); EST Glomerular Filtration Rate 118 mL/min (>60); Est Glom Filt Rate - Afr Amer 142 mL/min (>60); Estimated Creatinine Clearance 123.97 ml/min; Glucose 101 mg/dL (74-106); Sodium Level 135 mmol/L (136-145)
[2020-06-24] MEDS: 0.9% Saline Lock 10 ML Syringe IV ×4 (07:01→23:22)
[2020-06-24] MEDS: Aspirin E.C. 81 MG Tablet PO ×2 (08:26→17:01)
[2020-06-24] MEDS: Meloxicam 15 MG Tablet PO (08:26)
[2020-06-24] MEDS: Iron Polysaccharide Complex 150 MG CAPSULE PO (08:26)
[2020-06-24] MEDS: Carvedilol 3.125 MG TABLET PO ×2 (08:26→17:01)
[2020-06-24 08:27] VITALS: BP 143/78; PULSE 59; O2SAT 96
[2020-06-24 13:18] VITALS: BP 106/60; PULSE 63; RESP 16; TEMP 36.2; O2SAT 100
--- NOTE | 2020-06-24 13:30 | NURSING ---
Changed LT knee drsg per order so sister visiting could see progression per pt request. sister pleased and very appreciative of brother's care.
[2020-06-24] MEDS: BACITRACIN 15 GM Tube 1 APPLIC TOPICAL (13:34)
[2020-06-24] MEDS: Acetaminophen 500 MG Tablet 1000 MG PO (21:24)
[2020-06-24] MEDS: Atorvastatin Calcium 80 MG Tablet PO (21:24)
[2020-06-24] MEDS: traZODone 50 MG Tablet PO (21:24)
[2020-06-24] MEDS: oxyCODONE 5 MG Tablet PO (21:24)
[2020-06-25 05:30] VITALS: BP 133/81; PULSE 56; RESP 16; TEMP 36.2; O2SAT 96
[2020-06-25] MEDS: Nystatin Powder 15gm Bottle 1 APPLIC TOPICAL ×2 (05:34→17:46)
[2020-06-25] MEDS: Menthol/Lanolin/Calamine/Znox 113 GM Tube 1 APPLIC TOPICAL ×2 (05:34→17:46)
[2020-06-25] MEDS: Senna Tablet 2 TABLET PO ×2 (05:35→17:41)
[2020-06-25] MEDS: Pantoprazole Sodium 20 MG Tablet PO (05:35)
[2020-06-25] MEDS: Polyethylene Glycol 3350 17 GM PACKET PO ×2 (05:35→17:39)
[2020-06-25] MEDS: Losartan Potassium 100 MG Tablet PO (05:35)
[2020-06-25] MEDS: Ascorbic Acid 500 MG Tablet 1000 MG PO (05:35)
[2020-06-25] MEDS: hydroCHLOROthiazide 25 MG Tablet PO (05:35)
[2020-06-25] MEDS: Aspirin E.C. 81 MG Tablet PO ×2 (09:00→17:41)
[2020-06-25] MEDS: Carvedilol 3.125 MG TABLET PO ×2 (09:00→17:41)
[2020-06-25] MEDS: Meloxicam 15 MG Tablet PO (09:00)
[2020-06-25] MEDS: Iron Polysaccharide Complex 150 MG CAPSULE PO (09:00)
[2020-06-25 09:01] VITALS: BP 105/68; PULSE 68
[2020-06-25] MEDS: BACITRACIN 15 GM Tube 1 APPLIC TOPICAL (11:36)
[2020-06-25] MEDS: 0.9% Saline Lock 10 ML Syringe IV ×3 (11:36→23:33)
[2020-06-25 13:25] VITALS: BP 113/70; PULSE 59; RESP 18; TEMP 36.1; O2SAT 99
[2020-06-25 16:21] VITALS: RESP 16; O2SAT 97
[2020-06-25] MEDS: traZODone 50 MG Tablet PO (21:32)
[2020-06-25] MEDS: Atorvastatin Calcium 80 MG Tablet PO (21:32)
[2020-06-25] MEDS: Acetaminophen 500 MG Tablet 1000 MG PO (21:34)
[2020-06-25] MEDS: oxyCODONE 5 MG Tablet PO (21:34)
[2020-06-26 05:58] VITALS: BP 138/77; PULSE 55; RESP 16; TEMP 36.5; O2SAT 96
[2020-06-26] MEDS: Pantoprazole Sodium 20 MG Tablet PO (06:01)
[2020-06-26] MEDS: Losartan Potassium 100 MG Tablet PO (06:01)
[2020-06-26] MEDS: Nystatin Powder 15gm Bottle 1 APPLIC TOPICAL ×2 (06:01→17:19)
[2020-06-26] MEDS: hydroCHLOROthiazide 25 MG Tablet PO (06:01)
[2020-06-26] MEDS: Senna Tablet 2 TABLET PO ×2 (06:01→17:18)
[2020-06-26] MEDS: Menthol/Lanolin/Calamine/Znox 113 GM Tube 1 APPLIC TOPICAL ×2 (06:01→17:19)
[2020-06-26] MEDS: Ascorbic Acid 500 MG Tablet 1000 MG PO (06:02)
[2020-06-26] MEDS: Polyethylene Glycol 3350 17 GM PACKET PO ×2 (06:05→17:18)
[2020-06-26] MEDS: 0.9% Saline Lock 10 ML Syringe IV ×2 (06:06→11:27)
[2020-06-26] MEDS: Aspirin E.C. 81 MG Tablet PO ×2 (09:19→17:18)
[2020-06-26] MEDS: Meloxicam 15 MG Tablet PO (09:19)
[2020-06-26] MEDS: Iron Polysaccharide Complex 150 MG CAPSULE PO (09:20)
[2020-06-26] MEDS: Carvedilol 3.125 MG TABLET PO ×2 (09:20→17:18)
[2020-06-26 10:00] VITALS: PULSE 61; RESP 16; O2SAT 99
[2020-06-26] MEDS: BACITRACIN 15 GM Tube 1 APPLIC TOPICAL (11:28)
--- NOTE | 2020-06-26 13:53 | NURSING ---
Contacted othopedics to see if there will be any changes to his dressing, since he is discharging home on Friday. Waiting for call back.
[2020-06-26 14:07] VITALS: BP 117/70; PULSE 61; RESP 16; TEMP 36.3; O2SAT 98
--- NOTE | 2020-06-26 14:13 | NURSING ---
wound photo: left knee
--- NOTE | 2020-06-26 14:14 | NURSING ---
Spoke with Dr. Cash's office (Orthopedics) per Dr. Cash, the patient no longer needs a dressing change and can keep the site [employer]HER as long as no drainage is present.
[2020-06-26] MEDS: Acetaminophen 500 MG Tablet 1000 MG PO (21:29)
[2020-06-26] MEDS: oxyCODONE 5 MG Tablet PO (21:29)
[2020-06-26] MEDS: Atorvastatin Calcium 80 MG Tablet PO (21:30)
[2020-06-26] MEDS: traZODone 50 MG Tablet PO (21:30)
[2020-06-27 06:05] VITALS: BP 152/76; PULSE 65; RESP 18; TEMP 36.7; O2SAT 97
[2020-06-27] MEDS: Pantoprazole Sodium 20 MG Tablet PO (06:09)
[2020-06-27] MEDS: Polyethylene Glycol 3350 17 GM PACKET PO ×2 (06:09→17:50)
[2020-06-27] MEDS: Ascorbic Acid 500 MG Tablet 1000 MG PO (06:09)
[2020-06-27] MEDS: Losartan Potassium 100 MG Tablet PO (06:09)
[2020-06-27] MEDS: Senna Tablet 2 TABLET PO ×2 (06:09→17:51)
[2020-06-27] MEDS: hydroCHLOROthiazide 25 MG Tablet PO (06:09)
[2020-06-27] MEDS: Menthol/Lanolin/Calamine/Znox 113 GM Tube 1 APPLIC TOPICAL ×2 (06:12→17:51)
[2020-06-27] MEDS: Nystatin Powder 15gm Bottle 1 APPLIC TOPICAL ×2 (06:12→17:51)
--- NOTE | 2020-06-27 07:24 | NURSING ---
picline in rt upper arm d/c. tip intact. Vaseline dressing appilied with opsite. Pt tolerated it well. Pt is aware he needs to rest for 30 mins and not to be pulling on bedside table. Pt verbalized understanding
--- NOTE | 2020-06-27 08:38 | NURSING ---
PT WAS GIVEN 2ND COVID VACCINE TODAY IN LEFT ARM.
[2020-06-27 09:00] VITALS: BP 121/77; PULSE 73
[2020-06-27] MEDS: Aspirin E.C. 81 MG Tablet PO ×2 (09:06→17:51)
[2020-06-27] MEDS: Iron Polysaccharide Complex 150 MG CAPSULE PO (09:07)
[2020-06-27] MEDS: Meloxicam 15 MG Tablet PO (09:07)
[2020-06-27] MEDS: Carvedilol 3.125 MG TABLET PO ×2 (09:13→17:51)
[2020-06-27 15:38] VITALS: BP 123/69; PULSE 67; RESP 16; TEMP 36.4; O2SAT 97
[2020-06-27] MEDS: Acetaminophen 500 MG Tablet 1000 MG PO (21:27)
[2020-06-27] MEDS: Atorvastatin Calcium 80 MG Tablet PO (21:27)
[2020-06-27] MEDS: traZODone 50 MG Tablet PO (21:27)
[2020-06-27] MEDS: oxyCODONE 5 MG Tablet PO (21:27)
[2020-06-28] MEDS: Ascorbic Acid 500 MG Tablet 1000 MG PO (06:13)
[2020-06-28] MEDS: Polyethylene Glycol 3350 17 GM PACKET PO (06:13)
[2020-06-28] MEDS: Senna Tablet 2 TABLET PO (06:13)
[2020-06-28] MEDS: Pantoprazole Sodium 20 MG Tablet PO (06:13)
[2020-06-28] MEDS: Losartan Potassium 100 MG Tablet PO (06:13)
[2020-06-28] MEDS: hydroCHLOROthiazide 25 MG Tablet PO (06:14)
[2020-06-28] MEDS: Nystatin Powder 15gm Bottle 1 APPLIC TOPICAL (06:16)
[2020-06-28] MEDS: Menthol/Lanolin/Calamine/Znox 113 GM Tube 1 APPLIC TOPICAL (06:17)
[2020-06-28 06:18] VITALS: BP 133/78; PULSE 60; RESP 18; TEMP 37.1; O2SAT 95
[2020-06-28] MEDS: Aspirin E.C. 81 MG Tablet PO (08:44)
[2020-06-28] MEDS: Carvedilol 3.125 MG TABLET PO (08:45)
[2020-06-28] MEDS: Iron Polysaccharide Complex 150 MG CAPSULE PO (08:45)
[2020-06-28] MEDS: Meloxicam 15 MG Tablet PO (08:45)
[2020-06-28 10:00] VITALS: PULSE 82; RESP 16
[2020-06-28 10:25] VITALS: BP 115/80; PULSE 82; RESP 16; TEMP 36.4; O2SAT 97
== END 2020-06-28 10:25 | disposition home health service (06) | DRG 950 ==
PROVIDERS: Admitting Provider Family Medicine Geriatric Medicine; PCP Internal Medicine; Visit Provider Family Medicine Geriatric Medicine
DX: T84.54XD Infection and inflammatory reaction due to internal left knee prosthesis, subsequent encounter (principal); Y83.1 Surgical operation with implant of artificial internal device as the cause of abnormal reaction of the patient, or of later complication, without mention of misadventure at the time of the procedure; T81.30XD Disruption of wound, unspecified, subsequent encounter; I10 Essential (primary) hypertension; E78.5 Hyperlipidemia, unspecified; K21.9 Gastro-esophageal reflux disease without esophagitis; M19.90 Unspecified osteoarthritis, unspecified site; E54 Ascorbic acid deficiency; B35.4 Tinea corporis; Z79.899 Other long term (current) drug therapy; Z79.82 Long term (current) use of aspirin; D50.9 Iron deficiency anemia, unspecified
CPT/HCPCS: 36415; 74018; 80048; 82274; 83630; 85014; 85018; 85025; 86140; 87205; 87493; 87506; 87635; 97110; 97116; 97162; 97166; 97530; 97535; 97802; J7050; U0005; A4216; U0003

== ENCOUNTER 2020-06-06 13:34 | Outpatient (RCR) | payer MEDICARE, OTHER, SELFPAY ==
[2020-05-31 10:49] VITALS: BMI 24.0
[2020-06-06] MEDS: COVID-19 VACC, MRNA(PFIZER)/PF 30 MCG/0.3 ML SYRINGE IM (18:30)
[2020-06-27] MEDS: COVID-19 VACC, MRNA(PFIZER)/PF 30 MCG/0.3 ML SYRINGE IM (08:41)
== END 2020-09-05 23:59 ==
LOC: IMMUN 13:34
PROVIDERS: PCP Internal Medicine; Visit Provider Family Medicine
DX: Z23 Encounter for immunization (principal)
CPT/HCPCS: 0001A; 0002A; 91300

== ENCOUNTER 2020-08-01 15:05 | Outpatient (RCR) | payer MEDICARE, OTHER, SELFPAY ==
[2020-05-31 10:49] VITALS: BMI 24.0
[2020-08-01 15:39] LABS: Absolute Lymphocyte Count 1.08 X10^3/uL (0.83-4.51); Absolute Neutrophil Count 5.8 X10^3/uL (2.0-7.7); Basophil# 0.04 X10^3/uL; Basophil% 0.5 % (0-1); Eosinophil# 0.03 X10^3/uL; Eosinophils% 0.4 % (0-5); Hematocrit 40.1 % (40-54); Lymphocyte # 1.08 X10^3/ul (0.83-4.51); Lymphocyte % 14.4 % (19-41); Mean Corp Hgb Conc 32.4 g/dL (32-36); Mean Corpuscular Volume 86.4 fL (80-94); Mean Platelet Vol. 9.3 fl (6.2-12.0); Monocyte% 6.7 % (0-10); NRBC Flagged by Analyzer 0 % (0-5); Neutrophil # 5.81 X10^3/uL (2.7-7.7); Neutrophil % 77.6 % (47-70); Platelet Count 373 K/mm3 (150-450); RBC Distribution Width CV 17.2 % (11.6-14.6); RBC Distribution Width SD 53.9 fl (35.1-43.9); Red Blood Count 4.64 M/mm3 (4.6-6.2); White Blood Count 7.5 K/mm3 (4.4-11.0)
[2020-08-01 16:11] LABS: ALB/GLOB Ratio 0.8 RATIO (0.9-2.4); AST(SGOT) 17 U/L (15-37); Alanine Aminotransfer ALT/SGPT 21 U/L (16-61); Albumin, Serum 3.3 g/dL (3.2-5.0); Alkaline Phosphatase 171 U/L (45-117); Anion Gap 9 (5-15); BUN 8 mg/dL (7-18); BUN/Creat Ratio 13.3 RATIO (10-20); Calcium,Total 8.6 mg/dL (8.5-10.1); Chloride 96 mmol/L (98-107); EST Glomerular Filtration Rate 143 mL/min (>60); Est Glom Filt Rate - Afr Amer 173 mL/min (>60); Ferritin 43 ng/mL (26-388); Globulin 3.9 g/dL (2.2-4.2); Glucose 142 mg/dL (74-106); Iron 40 ug/dL (65-175); Iron Binding Capacity,Total 323 ug/dL (250-450); Potassium 3.6 mmol/L (3.5-5.1); Protein, Total 7.2 g/dL (6.4-8.2); Sodium Level 131 mmol/L (136-145)
== END 2020-08-01 18:00 | disposition home or self-care (01) ==
LOC: HHLAB 15:05
PROVIDERS: PCP Internal Medicine; Referring Provider Internal Medicine Hematology & Oncology; Visit Provider Internal Medicine Hematology & Oncology
DX: D64.9 Anemia, unspecified (principal)
CPT/HCPCS: 80053; 82728; 83540; 83550; 85025

== ENCOUNTER 2021-08-16 15:30 | Outpatient (RCR) | payer MEDICARE, OTHER, SELFPAY ==
--- NOTE | 2021-02-27 11:48 | HP.PTEVAL_ITS ---
Patient's Visit Information NAPOLEON CEJA is a 65 year old M referred to Physical Therapy by Dr. Jagdish Newton MD with a diagnosis of Left Above Knee Amputation. Date of Evaluation: 02/27/21 Physical Therapist: Martha Fong DPT - Visit Plan Frequency: 3x /Week Duration: 3 Weeks Plan: Above Knee Amputation- Focus on ambulation with prosthetic and balance - Subjective Left leg amputation September 14, 2020- 38 years ago- took the leg off and they re- attached it- TKR (Mar 01, 2020)- infection- Dr. Nieves did the first one and Dr. Cash did the amputation ([facility]). He got his leg yesterday. He wore it a little bit yesterday. Fully I prior to TKR in February and was still working. Single story home with no stairs to enter. Has a who can help as needed. Primary mode of transportation is a wheelchair and can hop on a FWW. He can get around his house pretty easily and independently. He can do his own bathing on a shower chair but his helps him get dried off- he an do his own dressing. Has no issues with sore on his leg. He has no pain in the leg. [employer] did his prosthetic. He required help to get the leg on/off. Goals for PT are to get walking and back to being more active. He does not feel that he has decreased sensation. Does do a home exercise program. PMHx/Meds: No changes since. Does have some left sided weakness from an accident 2 years ago. - Objective Posture: severe forward head, rounded shoulders, increased kyphosis- unable to correct with verbal and tactile cues. Gait: FWW- can hop forwards on his right without loss of balance. In // bars with prosthetic- poor control with bending of the knee of the prosthetic- step to pattern. HR/TR: able on the right. Balance: SLS: 15 seconds on the right- Unable on the left prosthetic. ROM: WFL in all planes of the right and left LE. Strength: Right: 5/5 throughout, Left: Hip: 4+/5 throughout. Sensation: WFL. Observation: well healed incision - Balance/Special Test Scores Lower Extremity Functional Score: 16 - Goals Goal 1:: Patient will be I with HEP and progression Goal Time Frame: 4-6 Weeks Goal 2:: Patient will ambulate >300 feet with LRD and prosthetic Goal Time Frame: 4-6 Weeks Goal 3:: Patient will perform 5 sit to stands with prosthetic and no UE A Goal Time Frame: 4-6 Weeks - Rehabilitation Potential Physical Therapy Diagnosis: Patient presents with hypomobility- he had an above knee amputation in August- he has recently received his prosthetic and would benefit from gait and balance training Rehabilitation Potential: Good - Anticipated Interventions Patient/Client Instruction: Educate patient on: Benefits of Fitness Program Therapeutic Exercise to Include: Strength training, Endurance training, Balance training, Coordination, Agility training, Body mechanics, Postural training, Flexibilty training, Gait and locomotor training, Neuromotor development, Dynamic Lumbar Stabilization For the Purpose of:: To improve muscle performance and motor function Functional Training to Include: ADL Training, Gait training For the Purpose of:: To improve ability to perform ADL's Thank you for the opportunity to evaluate your patient. For Medicare and Medicare HMO plans, please review the plan of care and approve it. It will need to be FAXED BACK to us at [phone] for Medicare purposes. For Medicare only, by signing this I certify the plan of care. Please let me know if there are questions or concerns regarding this plan of care. Physician Signature: Date:
--- NOTE | 2021-03-22 15:31 | HP.PTREVAL_ITS ---
Dr. Jagdish Newton MD, It has been my pleasure to treat NAPOLEON CEJA over the last 10 visits for Left Above Knee Amputation. Please see the progress note below for an update on the physical therapy plan of care! Subjective: Patient reports that he is slow but better. He is walking at home- about 50 feet-he walks at home the days he does not have therapy. No pain or skin break down. Goes back down to [facility] on Friday. Objective/Function: Posture: severe forward head, rounded shoulders, increased kyphosis- unable to correct with verbal and tactile cues. Gait: ambulation with a FWW- continue to a step pattern. HR/TR: able on the right. Balance: SLS: 15 seconds on the right- Unable on the left prosthetic. ROM: WFL in all planes of the right and left LE. Strength: Right: 5/5 throughout, Left: Hip: 4+/5 throughout. Sensation: WFL. Observation: well healed incision Plan Plan: Above Knee Amputation- Focus on ambulation with prosthetic and balance. 03/22/21: Continue with POC- ambulation to I Balance/Gait/Functional tests - Balance/Special Test Scores Lower Extremity Functional Score: 30 Goals Goal 1:: Patient will be I with HEP and progression Goal Time Frame: 4-6 Weeks Goal 2:: Patient will ambulate >300 feet with LRD and prosthetic Goal Time Frame: 4-6 Weeks Goal 3:: Patient will perform 5 sit to stands with prosthetic and no UE A Goal Time Frame: 4-6 Weeks Anticipated Interventions Patient/Client Instruction: Educate patient on: Benefits of Fitness Program Therapeutic Exercise to Include: Strength training, Endurance training, Balance training, Coordination, Agility training, Body mechanics, Postural training, Flexibilty training, Gait and locomotor training, Neuromotor development, Dynamic Lumbar Stabilization For the Purpose of:: To improve muscle performance and motor function Functional Training to Include: ADL Training, Gait training For the Purpose of:: To improve ability to perform ADL's Please do not hesitate to contact me at [phone] by phone or if you have questions or concerns regarding this new plan of care! Sincerely, Martha Fong DPT
--- NOTE | 2021-05-10 16:09 | HP.PTREVAL ---
Dr. Jagdish Newton MD, It has been my pleasure to treat NAPOLEON CEJA over the last 25 visits for Left Above Knee Amputation. Please see the progress note below for an update on the physical therapy plan of care! Subjective: Walking at home 4-5x a week for about 30 min a time with his walker- does not feel safe yet with the cane at home. No pressure sores or pain in the limb. Objective/Function: Posture: severe forward head, rounded shoulders, increased kyphosis- unable to correct with verbal and tactile cues. Gait: ambulation with a wide base quad cane- approx 300 feet with SBA. HR/TR: able on the right. Balance: SLS: 15 seconds on the right- Unable on the left prosthetic. ROM: WFL in all planes of the right and left LE. Strength: Right: 5/5 throughout, Left: Hip: 4+/5 throughout. Sensation: WFL. Observation: well healed incision Plan Plan: 05/10/20: Continue with ambulation with LRD, add stairs and curbs. Above Knee Amputation- Focus on ambulation with prosthetic and balance. Focus on L prosthesis WB comfort and posture. Balance/Gait/Functional tests - Balance/Special Test Scores Lower Extremity Functional Score: 28 Goals Goal 1:: Patient will be I with HEP and progression Goal Time Frame: 4-6 Weeks Goal 2:: Patient will ambulate >300 feet with LRD and prosthetic Goal Time Frame: 4-6 Weeks Goal 3:: Patient will asc/desc 8 stairs with 1 HR and LRD SBA for safety Goal Time Frame: 4-6 Weeks Goal 4:: Patient will asc/desc a curb with LRD SBA for safety Anticipated Interventions Patient/Client Instruction: Educate patient on: Benefits of Fitness Program Therapeutic Exercise to Include: Strength training, Endurance training, Balance training, Coordination, Agility training, Body mechanics, Postural training, Flexibilty training, Gait and locomotor training, Neuromotor development, Dynamic Lumbar Stabilization For the Purpose of:: To improve muscle performance and motor function Functional Training to Include: ADL Training, Gait training For the Purpose of:: To improve ability to perform ADL's Please do not hesitate to contact me at [phone] by phone or if you have questions or concerns regarding this new plan of care! Sincerely, ASHLEY AcostaT
--- NOTE | 2021-06-07 16:55 | HP.PTREVAL ---
Dr. Jagdish Newton MD, It has been my pleasure to treat NAPOLEON CEJA over the last 36 visits for Left Above Knee Amputation. Please see the progress note below for an update on the physical therapy plan of care! Subjective: Patient reports walking with a quad cane- but at home he is walking with a walker. He does have some pain in the outside of the leg- comes and goes- when he gets done walking around. He is only walking 4x a week at home. 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 He wants to get a knee with a microprocessor but was told that he needs to be walking more. Objective/Function: Posture: severe forward head, rounded shoulders, increased kyphosis- unable to correct with verbal and tactile cues. Gait: ambulation with a wide base quad cane- approx 300 feet with SBA- does not look up even given verbal cues. HR/TR: able on the right. Balance: SLS: 15 seconds on the right- 2 sec on the left prosthetic. ROM: WFL in all planes of the right and left LE. Strength: Right: 5/5 throughout, Left: Hip: 4+/5 throughout. Sensation: WFL. Observation: well healed incision Plan Plan: 05/10/20: Cont L prosthesis WB comfort, ambulation w/ LRD (stairs/curbs), balance and posture. AKA - Weight of prosthetic 9# Balance/Gait/Functional tests - Balance/Special Test Scores Lower Extremity Functional Score: 28 Goals Goal 1:: Patient will be I with HEP and progression Goal Time Frame: 4-6 Weeks Goal Progress: Progressing Goal 2:: Patient will ambulate >300 feet with LRD and prosthetic Goal Time Frame: 4-6 Weeks Goal Progress: Progressing Goal 3:: Patient will asc/desc 8 stairs with 1 HR and LRD SBA for safety Goal Time Frame: 4-6 Weeks Goal 4:: Patient will asc/desc a curb with LRD SBA for safety Anticipated Interventions Patient/Client Instruction: Educate patient on: Benefits of Fitness Program Therapeutic Exercise to Include: Strength training, Endurance training, Balance training, Coordination, Agility training, Body mechanics, Postural training, Flexibilty training, Gait and locomotor training, Neuromotor development, Dynamic Lumbar Stabilization For the Purpose of:: To improve muscle performance and motor function Functional Training to Include: ADL Training, Gait training For the Purpose of:: To improve ability to perform ADL's Please do not hesitate to contact me at [phone] by phone or if you have questions or concerns regarding this new plan of care! Sincerely, ASHLEY AcostaT
--- NOTE | 2021-06-07 17:07 | HP.PTREVAL_ITS ---
Dr. Jagdish Newton MD, It has been my pleasure to treat NAPOLEON CJEA over the last 36 visits for Left Above Knee Amputation. Please see the progress note below for an update on the physical therapy plan of care! Subjective: Patient reports walking with a quad cane- but at home he is walking with a walker. He does have some pain in the outside of the leg- comes and goes- when he gets done walking around. He is only walking 4x a week at home. 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 He wants to get a knee with a microprocessor but was told that he needs to be walking more. Objective/Function: Posture: severe forward head, rounded shoulders, increased kyphosis- unable to correct with verbal and tactile cues. Gait: ambulation with a wide base quad cane- approx 300 feet with SBA- does not look up even given verbal cues. HR/TR: able on the right. Balance: SLS: 15 seconds on the right- 2 sec on the left prosthetic. ROM: WFL in all planes of the right and left LE. Strength: Right: 5/5 throughout, Left: Hip: 4+/5 throughout. Sensation: WFL. Observation: well healed incision. Patient is non compliant with exercises or wearing his prosthetic at home. Plan Plan: 06/07/21: Focus on ambulation and stairs. 05/10/21: Cont L prosthesis WB comfort, ambulation w/ LRD (stairs/curbs), balance and posture. AKA - Weight of prosthetic 9# Balance/Gait/Functional tests - Balance/Special Test Scores Lower Extremity Functional Score: 28 Goals Goal 1:: Patient will be I with HEP and progression Goal Time Frame: 4-6 Weeks Goal Progress: Progressing Goal 2:: Patient will ambulate >300 feet with LRD and prosthetic Goal Time Frame: 4-6 Weeks Goal Progress: Progressing Goal 3:: Patient will asc/desc 8 stairs with 1 HR and LRD SBA for safety Goal Time Frame: 4-6 Weeks Goal 4:: Patient will asc/desc a curb with LRD SBA for safety Anticipated Interventions Patient/Client Instruction: Educate patient on: Benefits of Fitness Program Therapeutic Exercise to Include: Strength training, Endurance training, Balance training, Coordination, Agility training, Body mechanics, Postural training, Flexibilty training, Gait and locomotor training, Neuromotor development, Dynamic Lumbar Stabilization For the Purpose of:: To improve muscle performance and motor function Functional Training to Include: ADL Training, Gait training For the Purpose of:: To improve ability to perform ADL's Please do not hesitate to contact me at [phone] by phone or if you have questions or concerns regarding this new plan of care! Sincerely, ASHLEY AcostaT
== END 2021-08-16 19:00 | disposition home or self-care (01) ==
LOC: PT 15:30
PROVIDERS: PCP Internal Medicine; Referring Provider Orthopaedic Surgery; Visit Provider Orthopaedic Surgery
DX: Z47.81 Encounter for orthopedic aftercare following surgical amputation (principal); Z89.612 Acquired absence of left leg above knee
CPT/HCPCS: 97110; 97112; 97116; 97162; 97164; 97530

== ENCOUNTER 2021-09-27 16:00 | Outpatient (RCR) | payer MEDICARE, OTHER, SELFPAY | END 2021-09-27 19:00 | disposition home or self-care (01) | LOC: PT 16:00 | PROVIDERS: PCP Internal Medicine; Referring Provider Orthopaedic Surgery; Visit Provider Orthopaedic Surgery | DX: Z47.89 Encounter for other orthopedic aftercare (principal); Z89.612 Acquired absence of left leg above knee | CPT/HCPCS: 97110; 97164; 97530 ==